=== PATIENT | female | born 1940 | race Caucasian/White ===

== ENCOUNTER 2016-08-08 13:48 | Inpatient (IN) | payer OTHER ==
[~2016-08-08] VITALS: Ht 152.4 cm; Wt 90.2 kg
[~2016-08-08 13:48] MED LIST: ASPI81TA28 PO; DULO60CA44 PO; GABA-113 PO; LEVO100T PO; LORA-741 PO; MELO7.5T5 PO; PANT40TA PO; SIMV40TA2 PO; VITACAP26 PO; VITAMIN D PO; ZOLP10TA PO
--- NOTE | 2016-08-08 15:15 | EMERGENCY ROOM VISIT NOTE ---
History Report prepared by Satinder: Chuck Goldstein Under the Supervision of: Dr. Jose Angel Pina D.O. First contact with patient: 15:01 Chief Complaint: IRREGULAR HEARTBEAT Stated Complaint: NEW ONSET OF A-FIB History of Present Illness The patient is a 76 year old female who presents to the Emergency Room with complaints of acute new-onset atrial fibrillation. The patient was referred to the ED by her Anesthesiologist for an irregular heartbeat during a pre-op assessment for hip replacement. The patient denies experiencing any chest pain, shortness of breath, nausea, vomiting, or leg swelling. She has not had any recent illness. The patient does not have any complaints. Cardiology was not consulted prior to referring the patient to the ED. The patient denies tobacco or alcohol use. She does not have a history of hypertension, diabetes mellitus, thyroid disease, or heart disease. The patient has never been treated for atrial fibrillation or other heart rhythm irregularities. The patient has a history of uterine cancer s/p total hysterectomy. The patient follows up with Dr. Blanton. Source of History: patient Onset: today Position: other (heart ) Quality: other (new onset A-fib) Timing: other (acute) Associated Symptoms: No SOB, No chest pain, No nausea, No vomiting Review of Systems See HPI for pertinent positives & negatives. A total of 10 systems reviewed and were otherwise negative. Past Medical & Surgical Medical Problems: (1) Anxiety (2) Atrial fibrillation with RVR (3) GERD (gastroesophageal reflux disease) (4) History of diverticulitis (5) History of hypertension (6) Osteoarthritis (7) Uterine cancer Surgical Problems: (1) H/O right knee surgery (2) History of lumbar surgery (3) S/P appendectomy (4) S/P BSO (bilateral salpingo-oophorectomy) (5) S/P cholecystectomy (6) S/P shoulder surgery (7) S/P total hysterectomy Family History Patient reports no known family medical history. Social History Smoking Status: Never Smoker Alcohol Use: none Current/Historical Medications Scheduled Aspirin (Aspirin Ec), 81 MG PO QAM Duloxetine Hcl (Cymbalta), 60 MG PO QAM Gabapentin (Neurontin), 300 MG PO QAM Gabapentin (Neurontin), 600 MG PO QPM Levothyroxine Sodium (Synthroid), 100 MCG PO QAM Lorazepam (Ativan), 0.5 MG PO HS Pantoprazole Sodium (Protonix), 40 MG PO QPM Simvastatin (Zocor), 40 MG PO 3XWEEK Vitamins C & E (Vitamin C), 1 TAB PO QPM Zolpidem Tartrate (Ambien), 10 MG PO HS [Vitamin D], 1 TAB PO QPM Scheduled PRN Meloxicam (Mobic), 7.5 MG PO DAILY PRN for Pain Allergies Coded Allergies: No Known Allergies (Unverified , 08/08/16) Physical Exam Vital Signs Date Time Temp Pulse Resp B/P Pulse Ox O2 Delivery O2 Flow Rate FiO2 08/08/16 17:38 105 27 08/08/16 17:33 90 14 97 08/08/16 17:28 136/92 08/08/16 17:03 102 95 08/08/16 16:58 131/87 08/08/16 16:33 95 97 08/08/16 16:28 126/95 08/08/16 16:18 110 97 08/08/16 16:00 152/99 08/08/16 15:48 108 21 97 08/08/16 15:46 113 20 135/90 96 Room Air 08/08/16 15:38 135/90 08/08/16 15:31 109 08/08/16 15:25 96 Room Air 08/08/16 15:25 96 Room Air 08/08/16 15:25 96 Room Air 08/08/16 13:53 36.8 82 20 134/79 96 Room Air Physical Exam GENERAL: Patient is awake, alert, and in no acute distress. Patient is resting comfortably and showing no signs of anxiety EYES: The conjunctivae are clear. The pupils are round and reactive. EARS, NOSE, MOUTH AND THROAT: The nose is without any evidence of any deformity. Mucous membranes are moist tongue is midline NECK: The neck is nontender and supple. RESPIRATORY: Normal respiratory effort is noted there is no evidence of wheezing rhonchi or rales CARDIOVASCULAR: Irregular rhythm noted to auscultation, no definite murmur was noted. GASTROINTESTINAL: The abdomen is soft. Bowel sounds are present in all quadrants. Abdomen is nontender MUSCULOSKELETAL/EXTREMITIES: There is no evidence of gross deformity full range of motion is noted in the hips and shoulders SKIN: There is no obvious evidence of any rash. There are no petechiae, pallor or cyanosis noted. Trace pedal edema bilaterally. NEUROLOGIC: Patient is awake alert and oriented x3. Medical Decision & Procedures ER Provider Diagnostic Interpretation: X-ray results as stated below per interpretation by me and the radiologist. CHEST ONE VIEW PORTABLE CLINICAL HISTORY: Palpitations. COMPARISON STUDY: No previous studies for comparison. FINDINGS: A left subclavian [id number] and proximal right humeral internal fixation are incidentally noted. There is no pneumothorax or pleural effusion. Moderate cardiomegaly is noted. There is no evidence of pulmonary edema. Right upper quadrant surgical clips are noted. Deformity of the left humeral head is likely chronic. IMPRESSION: 1. No acute cardiopulmonary findings. 2. Moderate cardiomegaly. 3. Study compromised by suboptimal penetration. Electronically signed by: Yaya Laureano M.D. 08/08/2016 3:28 PM Dictated Date/Time: 08/08/2016 3:27 PM Laboratory Results 08/08/16 15:26 Red Blood Count 4.17, Mean Corpuscular Volume 93.0, Mean Corpuscular Hemoglobin 30.9, Mean Corpuscular Hemoglobin Concent 33.2, Mean Platelet Volume 9.2, Neutrophils (%) (Auto) 61.6, Lymphocytes (%) (Auto) 24.7, Monocytes (%) (Auto) 9.5, Eosinophils (%) (Auto) 3.3, Basophils (%) (Auto) 0.4, Neutrophils # (Auto) 3.52, Lymphocytes # (Auto) 1.41, Monocytes # (Auto) 0.54, Eosinophils # (Auto) 0.19, Basophils # (Auto) 0.02 08/08/16 15:26 Test 08/08/16 15:26 08/08/16 16:02 White Blood Count 5.71 K/uL (4.8-10.8) Red Blood Count 4.17 M/uL (4.2-5.4) Hemoglobin 12.9 g/dL (12.0-16.0) Hematocrit 38.8 % (37-47) Mean Corpuscular Volume 93.0 fL (80-100) Mean Corpuscular Hemoglobin 30.9 pg (25-34) Mean Corpuscular Hemoglobin Concent 33.2 g/dl (32-36) Platelet Count 239 K/uL (130-400) Mean Platelet Volume 9.2 fL (7.4-10.4) Neutrophils (%) (Auto) 61.6 % Lymphocytes (%) (Auto) 24.7 % Monocytes (%) (Auto) 9.5 % Eosinophils (%) (Auto) 3.3 % Basophils (%) (Auto) 0.4 % Neutrophils # (Auto) 3.52 K/uL (1.4-6.5) Lymphocytes # (Auto) 1.41 K/uL (1.2-3.4) Monocytes # (Auto) 0.54 K/uL (0.11-0.59) Eosinophils # (Auto) 0.19 K/uL (0-0.5) Basophils # (Auto) 0.02 K/uL (0-0.2) RDW Standard Deviation 46.2 fL (36.4-46.3) RDW Coefficient of Variation 13.6 % (11.5-14.5) Immature Granulocyte % (Auto) 0.5 % Immature Granulocyte # (Auto) 0.03 K/uL (0.00-0.02) Prothrombin Time 10.4 SECONDS (9.0-12.0) Prothromb Time International Ratio 1.0 (0.9-1.1) Activated Partial Thromboplast Time 25.4 SECONDS (21.0-31.0) Partial Thromboplastin Ratio 1.0 Anion Gap 9.0 mmol/L (3-11) Est Creatinine Clear Calc Drug Dose 53.9 ml/min Estimated GFR () 70.2 Estimated GFR (Non- 60.5 BUN/Creatinine Ratio 15.5 (10-20) Calcium Level 9.2 mg/dl (8.5-10.1) Magnesium Level 2.1 mg/dl (1.8-2.4) Total Bilirubin 0.7 mg/dl (0.2-1) Aspartate Amino Transf (AST/SGOT) 15 U/L (15-37) Alanine Aminotransferase (ALT/SGPT) 15 U/L (12-78) Alkaline Phosphatase 123 U/L (45-117) Total Creatine Kinase 28 U/L (26-192) Creatine Kinase MB < 0.5 ng/ml (0.5-3.6) Creatine Kinase MB Ratio (0-3.0) Troponin I < 0.015 ng/ml (0-0.045) Total Protein 7.0 gm/dl (6.4-8.2) Albumin 3.5 gm/dl (3.4-5.0) Globulin 3.5 gm/dl (2.5-4.0) Albumin/Globulin Ratio 1.0 (0.9-2) Thyroid Stimulating Hormone (TSH) 0.559 uIu/ml (0.300-4.500) Free Thyroxine 1.57 ng/dl (0.80-1.60) Urine Color YELLOW Urine Appearance CLEAR (CLEAR) Urine pH 6.0 (4.5-7.5) Urine Specific [place] 1.008 (1.000-1.030) Urine Protein NEG (NEG) Urine Glucose (UA) NEG (NEG) Urine Ketones TRACE (NEG) Urine Occult Blood NEG (NEG) Urine Nitrite NEG (NEG) Urine Bilirubin NEG (NEG) Urine Urobilinogen NEG (NEG) Urine Leukocyte Esterase LARGE (NEG) Urine WBC (Auto) >30 /hpf (0-5) Urine RBC (Auto) 0-4 /hpf (0-4) Urine Hyaline Casts (Auto) 1-5 /lpf (0-5) Urine Epithelial Cells (Auto) 10-20 /lpf (0-5) Urine Bacteria (Auto) 4+ (NEG) Laboratory results per my review. Medications Administered Medications (Trade) Dose Ordered Sig/Vladislav Route Start Time Stop Time Status Last Admin Dose Admin Ceftriaxone Sodium (Rocephin Inj) 1 gm NOW STAT IV 08/08/16 17:04 08/08/16 17:05 DC 08/08/16 17:34 1 GM Metoprolol Tartrate (Lopressor Tab) 25 mg NOW STAT PO 08/08/16 17:31 08/08/16 17:33 DC 08/08/16 17:39 25 MG Enoxaparin Sodium (Lovenox Inj) 100 mg NOW ONCE SQ 08/08/16 17:45 08/08/16 17:46 DC 08/08/16 17:40 100 MG ECG Indication: other (irregular heart beat) Rate (beats per minute): 108 Rhythm: atrial fibrillation Findings: no acute ischemic change, other (no PVCs) Comparison ECG Date: no prior available ED Course 1508: The patient was evaluated in room A12b. A complete history and physical examination were performed. 1540: Second EKG showed atrial fibrillation at 116, no ectopy, no significant change from earlier EKG. 1704: Rocephin 1 gm IV. 1710: Discussed the case with Dr. Estrada Exhibit Cleaner. 1724: Updated the patient. She agreed with the plan. 173: Lopressor 25 mg PO. 173: Spoke with Lisa Jara PA-C, [facility]. The patient will be evaluated. 1745: Lovenox 100 mg SQ. Medical Decision Prior records/ancillary studies reviewed. Triage Nursing notes reviewed. Additional history obtained from daughter. The patient's history was concerning for palpitations. Differential diagnosis: Etiologies such as premature contractions, electrolyte abnormality, cardiac dysrhythmia, thyroid dysfunction, pulmonary embolism, infection, gastrointestinal, as well as others were entertained. The patient is a 76-year-old female who presented to the emergency department for an evaluation of palpitations. The patient went for preop testing and was sent to the emergency department for atrial fibrillation. She states that this is a new finding and she has not had this in the past. She has very few symptoms with this but we are unsure the exact onset of the atrial fibrillation. I discussed patient's laboratory and radiographic studies with her. She was started on an IV antibiotic for presumed urinary tract infection noted on urinalysis but was also given beta blockers and Lovenox in the emergency department. I discussed her case with the on-call [facility] carton gluing machine operator. I also discussed her case with the on-call [facility] hospitalist group. They have agreed to evaluate the patient in emergency apartment for further management and disposition. Consults Time Called: 1729 Consulting Physician: [facility]-C[facility] Returned Call: 1731 173: Spoke with Lisa Jara PA-C, [facility]. The patient will be evaluated. Additional Consults: Time Called: 170 Consulted Physician: Dr. Estrada Exhibit Cleaner. Returned Call: 171 Additional Comments: 171: Discussed the case with Dr. Estrada, Exhibit Cleaner. Impression Primary Impression: New onset a-fib Additional Impression: Palpitations Scribe Attestation The scribe's documentation has been prepared under my direction and personally reviewed by me in its entirety. I confirm that the note above accurately reflects all work, treatment, procedures, and medical decision making performed by me. Departure Information Dispostion Being Evaluated By Hospitalist Referrals No Doctor, Assigned (PCP) Patient Instructions My [facility] Problem Qualifiers
--- NOTE | 2016-08-08 15:29 | DIAGNOSTIC IMAGING REPORT ---
CHEST ONE VIEW PORTABLE CLINICAL HISTORY: Palpitations. COMPARISON STUDY: No previous studies for comparison. FINDINGS: A left subclavian [id number] and proximal right humeral internal fixation are incidentally noted. There is no pneumothorax or pleural effusion. Moderate cardiomegaly is noted. There is no evidence of pulmonary edema. Right upper quadrant surgical clips are noted. Deformity of the left humeral head is likely chronic. IMPRESSION: 1. No acute cardiopulmonary findings. 2. Moderate cardiomegaly. 3. Study compromised by suboptimal penetration. Electronically signed by: Yaya Laureano M.D. 08/08/2016 3:28 PM Dictated Date/Time: 08/08/2016 3:27 PM
[2016-08-08 15:58] LABS: BASO % 0.4 %; BASO ABS # 0.02 K/uL (0-0.2); COMPLETE YES; EOS % 3.3 %; HEMATOCRIT 38.8 % (37-47); IG% 0.5 %; LYMPH % 24.7 %; LYMPH ABS # 1.41 K/uL (1.2-3.4); MEAN CORPUSCULAR HEMOGLOBIN 30.9 pg (25-34); MEAN CORPUSCULAR HGB CONC 33.2 g/dl (32-36); MEAN PLATELET VOLUME 9.2 fL (7.4-10.4); MONO % 9.5 %; NEUT % 61.6 %; PLATELET COUNT 239 K/uL (130-400); RED BLOOD COUNT 4.17 M/uL (4.2-5.4); WHITE BLOOD COUNT 5.71 K/uL (4.8-10.8)
[2016-08-08 16:07] LABS: PROTHROMBIN TIME (PATIENT) 10.4 SECONDS (9.0-12.0)
[2016-08-08 16:21] LABS: ALT/SGPT 15 U/L (12-78); BLOOD UREA NITROGEN 14 mg/dl (7-18); BUN/CREATININE RATIO 15.5 (10-20); CALCIUM 9.2 mg/dl (8.5-10.1); CARBON DIOXIDE 28 mmol/L (21-32); CHLORIDE 105 mmol/L (98-107); CREATININE 0.93 mg/dl (0.60-1.20); GLUCOSE 87 mg/dl (70-99); MAGNESIUM 2.1 mg/dl (1.8-2.4); SODIUM 142 mmol/L (136-145)
[2016-08-08 16:27] LABS: URINE APPEARANCE CLEAR (CLEAR); URINE BILIRUBIN NEG (NEG); URINE COLOR YELLOW; URINE NITRITE NEG (NEG); URINE SPECIFIC GRAVITY 1.008 (1.000-1.030); UROBILINOGEN NEG (NEG)
[2016-08-08 16:28] LABS: MANUAL MICROSCOPIC REQUIRED? NO; REVIEW REQ? NO
[2016-08-08 16:29] LABS: ALKALINE PHOSPHATASE 123 U/L (45-117); AST/SGOT 15 U/L (15-37); THYROID STIMULATING HORMONE 0.559 uIu/ml (0.300-4.500)
[2016-08-08] MEDS ORDERED: CEFTRIAXONE SOD INJ 1 GM ADDVIAL IV STA (17:04)
[2016-08-08] MEDS ORDERED: METOPROLOL TARTRATE 50 MG TAB PO STA (17:31)
[2016-08-08] MEDS ORDERED: ENOXAPARIN 100 MG/1ML SYR SQ ONE (17:45)
[2016-08-08] MEDS ORDERED: ONDANSETRON INJ 2 MG/ML 2 ML VIAL IV PRN (18:30)
[2016-08-08] MEDS ORDERED: ACETAMINOPHEN 325 MG TAB PO PRN (18:30)
[2016-08-08 19:08] VITALS: O2SAT 96
[2016-08-08] MEDS ORDERED: METOPROLOL TARTRATE 1 MG/ML VIAL IV PRN (19:15)
[2016-08-08] MEDS ORDERED: MELOXICAM 7.5 MG TAB PO PRN (19:15)
--- NOTE | 2016-08-08 19:41 | History and Physical ---
History & Physical Date & Time of Service: Aug 08, 2016 at 19:08 Chief Complaint: New Onset Of A-Fib Primary Care Physician: Dilip Blanton M.D. History of Present Illness Source: patient, family (daughter at bedside) This is a 76 y/o female with PMH of uterine CA in remission s/p hysterectomy and chemo, history of hypertension, hyperlipidemia hypothyroidism, osteoarthritis, GERD, anxiety, who was sent to the ED from preop testing due to new onset atrial fibrillation. Patient was having preop testing done for R hip replacement scheduled for August [address] Johnsno. Pt reports feeling well except for her chronic right hip pain. She notes chronic urinary frequency and urgency. She denies fever, chills, dizziness, focal neuro symptoms, URI symptoms, cough, SOB, chest pain, palpitations, abdominal pain, nausea, vomiting , diarrhea, calf pain, edema, weight gain, history of abnormal bleeding. She was hospitalized in April 2016 in [facility] for 1 day after a mechanical fall in setting of dehydration from chemotherapy. No further falls. She lives alone and ambulates with a cane or walker. She states she was on medication for hypertension in the past but it was d/c in Apr 2016. Denies history of arrhythmia, CAD, valvular disease, CHF, DM, TIA, CVA. Denies having echo done recently. Past Medical/Surgical History Medical Problems: (1) Anxiety Status: Chronic (2) GERD (gastroesophageal reflux disease) Status: Chronic (3) History of diverticulitis Status: Chronic (4) History of hypertension Status: Chronic (5) Osteoarthritis Status: Chronic (6) Uterine cancer Permanent Comment: in remission s/p hysterectomy and chemo completed Apr 2016 Status: Resolved Surgical Problems: (1) H/O right knee surgery Status: Chronic (2) History of lumbar surgery Status: Chronic (3) S/P appendectomy Status: Chronic (4) S/P BSO (bilateral salpingo-oophorectomy) Status: Chronic (5) S/P cholecystectomy Status: Chronic (6) S/P shoulder surgery Status: Chronic (7) S/P total hysterectomy Status: Resolved Family History Denies any family history of CAD, arrhythmia, sudden cardiac . States both parents lived into their 90's. Social History Smoking Status: Never Smoker Alcohol Use: none Drug Use: none Housing status: lives alone Allergies Coded Allergies: No Known Allergies (Unverified , 08/08/16) Home Medications Scheduled Aspirin (Aspirin Ec), 81 MG PO QAM Duloxetine Hcl (Cymbalta), 60 MG PO QAM Gabapentin (Neurontin), 300 MG PO QAM Gabapentin (Neurontin), 600 MG PO QPM Levothyroxine Sodium (Synthroid), 100 MCG PO QAM Lorazepam (Ativan), 0.5 MG PO HS Pantoprazole Sodium (Protonix), 40 MG PO QPM Simvastatin (Zocor), 40 MG PO 3XWEEK Vitamins C & E (Vitamin C), 1 TAB PO QPM Zolpidem Tartrate (Ambien), 10 MG PO HS [Vitamin D], 1 TAB PO QPM Scheduled PRN Meloxicam (Mobic), 7.5 MG PO DAILY PRN for Pain Review of Systems Ten point review of systems performed with pertinent positives and negatives noted in HPI. Physical Exam Vital Signs Date Time Temp Pulse Resp B/P Pulse Ox O2 Delivery O2 Flow Rate FiO2 08/08/16 17:33 90 14 97 08/08/16 17:28 136/92 08/08/16 17:03 102 95 08/08/16 16:58 131/87 08/08/16 16:33 95 97 08/08/16 16:28 126/95 08/08/16 16:18 110 97 08/08/16 16:00 152/99 08/08/16 15:48 108 21 97 08/08/16 15:46 113 20 135/90 96 Room Air 08/08/16 15:38 135/90 08/08/16 15:31 109 08/08/16 15:25 96 Room Air 08/08/16 15:25 96 Room Air 08/08/16 15:25 96 Room Air 08/08/16 13:53 36.8 82 20 134/79 96 Room Air General Appearance: WD/WN, no apparent distress, + obese, + pertinent finding ( pleasant alert elderly female, lying in bed NAD, daughter at bedside) Head: normocephalic, atraumatic Eyes: normal inspection, PERRL, EOMI ENT: hearing grossly normal, pharynx normal Neck: supple, no JVD, trachea midline Respiratory/Chest: lungs clear, normal breath sounds, no respiratory distress, no accessory muscle use Cardiovascular: regular rate, rhythm, no murmur Abdomen/GI: normal bowel sounds, non tender, soft Extremities/Musculoskelatal: no calf tenderness, normal capillary refill, + pertinent finding (trace pretibial edema bilaterally) Neurologic/Psych: alert, normal mood/affect, oriented x 3, + pertinent finding (grossly nonfocal) Skin: normal color, warm/dry Diagnostics Laboratory Results Results Past 24 Hours Test 08/08/16 15:26 08/08/16 16:02 Range/Units White Blood Count 5.71 4.8-10.8 K/uL Red Blood Count 4.17 4.2-5.4 M/uL Hemoglobin 12.9 12.0-16.0 g/dL Hematocrit 38.8 37-47 % Mean Corpuscular Volume 93.0 80-100 fL Mean Corpuscular Hemoglobin 30.9 25-34 pg Mean Corpuscular Hemoglobin Concent 33.2 32-36 g/dl Platelet Count 239 130-400 K/uL Mean Platelet Volume 9.2 7.4-10.4 fL Neutrophils (%) (Auto) 61.6 % Lymphocytes (%) (Auto) 24.7 % Monocytes (%) (Auto) 9.5 % Eosinophils (%) (Auto) 3.3 % Basophils (%) (Auto) 0.4 % Neutrophils # (Auto) 3.52 1.4-6.5 K/uL Lymphocytes # (Auto) 1.41 1.2-3.4 K/uL Monocytes # (Auto) 0.54 0.11-0.59 K/uL Eosinophils # (Auto) 0.19 0-0.5 K/uL Basophils # (Auto) 0.02 0-0.2 K/uL RDW Standard Deviation 46.2 36.4-46.3 fL RDW Coefficient of Variation 13.6 11.5-14.5 % Immature Granulocyte % (Auto) 0.5 % Immature Granulocyte # (Auto) 0.03 0.00-0.02 K/uL Prothrombin Time 10.4 9.0-12.0 SECONDS Prothromb Time International Ratio 1.0 0.9-1.1 Activated Partial Thromboplast Time 25.4 21.0-31.0 SECONDS Partial Thromboplastin Ratio 1.0 Sodium Level 142 136-145 mmol/L Potassium Level 4.0 3.5-5.1 mmol/L Chloride Level 105 98-107 mmol/L Carbon Dioxide Level 28 21-32 mmol/L Anion Gap 9.0 3-11 mmol/L Blood Urea Nitrogen 14 7-18 mg/dl Creatinine 0.93 0.60-1.20 mg/dl Est Creatinine Clear Calc Drug Dose 53.9 ml/min Estimated GFR () 70.2 Estimated GFR (Non- 60.5 BUN/Creatinine Ratio 15.5 10-20 Random Glucose 87 70-99 mg/dl Calcium Level 9.2 8.5-10.1 mg/dl Magnesium Level 2.1 1.8-2.4 mg/dl Total Bilirubin 0.7 0.2-1 mg/dl Aspartate Amino Transf (AST/SGOT) 15 15-37 U/L Alanine Aminotransferase (ALT/SGPT) 15 12-78 U/L Alkaline Phosphatase 123 45-117 U/L Total Creatine Kinase 28 26-192 U/L Creatine Kinase MB < 0.5 0.5-3.6 ng/ml Creatine Kinase MB Ratio 0-3.0 Troponin I < 0.015 0-0.045 ng/ml Total Protein 7.0 6.4-8.2 gm/dl Albumin 3.5 3.4-5.0 gm/dl Globulin 3.5 2.5-4.0 gm/dl Albumin/Globulin Ratio 1.0 0.9-2 Thyroid Stimulating Hormone (TSH) 0.559 0.300-4.500 uIu/ml Free Thyroxine 1.57 0.80-1.60 ng/dl Urine Color YELLOW Urine Appearance CLEAR CLEAR Urine pH 6.0 4.5-7.5 Urine Specific [place] 1.008 1.000-1.030 Urine Protein NEG NEG Urine Glucose (UA) NEG NEG Urine Ketones TRACE NEG Urine Occult Blood NEG NEG Urine Nitrite NEG NEG Urine Bilirubin NEG NEG Urine Urobilinogen NEG NEG Urine Leukocyte Esterase LARGE NEG Urine WBC (Auto) >30 0-5 /hpf Urine RBC (Auto) 0-4 0-4 /hpf Urine Hyaline Casts (Auto) 1-5 0-5 /lpf Urine Epithelial Cells (Auto) 10-20 0-5 /lpf Urine Bacteria (Auto) 4+ NEG Microbiology Results 08/08/16 Urine Culture, Received Pending Diagnostic Radiology CHEST ONE VIEW PORTABLE CLINICAL HISTORY: Palpitations. COMPARISON STUDY: No previous studies for comparison. FINDINGS: A left subclavian [id number] and proximal right humeral internal fixation are incidentally noted. There is no pneumothorax or pleural effusion. Moderate cardiomegaly is noted. There is no evidence of pulmonary edema. Right upper quadrant surgical clips are noted. Deformity of the left humeral head is likely chronic. IMPRESSION: 1. No acute cardiopulmonary findings. 2. Moderate cardiomegaly. 3. Study compromised by suboptimal penetration. EKG atrial fibrillation with RVR, rate 116 bpm, incomplete RBBB, Impression Assessment and Plan NEW ONSET AFIB WITH RVR Unclear time of onset; discovered at preop testing for upcoming R hip surgery HR up to 110s; now running approx 100 Possible underlying UTI- UA appears infected; urine culture pending; started on Rocephin Electrolytes and TSH are WNL Initial troponin negative Given Lopressor 25 mg and weight based Lovenox SQ in the ER Trend serial cardiac enzymes Check echo Continue PO Lopressor at 25 mg BID and IV Lopressor PRN; weight based Lovenox SQ Consult cardiology; Dr. Estrada contacted by ER POSSIBLE UTI UA appears infected Urine culture pending Continue empiric Rocephin HISTORY OF HYPERTENSION No longer on medication BP is stable Continue to monitor HYPERLIPIDEMIA Continue simvastatin HYPOTHYROIDISM Continue levothyroxine HISTORY OF UTERINE CANCER In remission s/p surgery and chemo CHRONIC PAIN Continue gabapentin ANXIETY Continue PRN Ativan GERD Continue Protonix DVR PROPHYLAXIS On Lovenox SQ CODE STATUS DNR as per my discussion with the patient. DISPOSITION Admit to telemetry Patient seen in collaboration with Dr. Du. Please see his addendum. Agree with above H and P. Briefly 76F was having pre op evaluation for hip surgery and found to be in a fib. Never had any symptoms. Denies chest pain, palpitations, dizziness . No nausea or abdominal pain. 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 a/p New onset afib unknown duration started on po Lopressor and Lovenox f/u echo monitor in tele cardiology consulted HTN no longer on medication started on Lopressor this admission will monitor VTE Prophylaxis VTE Risk Assessment Done? Y/N: Yes Risk Level: Moderate Given or contraindicated: Enoxaparin (Lovenox)SQ
[2016-08-08 19:52] VITALS: BP 105/75; PULSE 92; TEMP 36.8; O2SAT 99; Ht 152.4 cm; Wt 90.2 kg
[2016-08-08] MEDS ORDERED: [UNRECOGNIZED DRUG - OTHER] PO SCH (21:00)
[2016-08-08] MEDS ORDERED: VITAMINS C PO SCH (21:00)
[2016-08-08] MEDS ORDERED: WARFARIN SOD 5 MG TAB PO STA (21:10)
[2016-08-08] MEDS ORDERED: WARFARIN SOD 5 MG TAB ONE (23:34)
[2016-08-08] MEDS: PANTOprazole SOD 40 MG TAB PO SCH (23:40)
[2016-08-08] MEDS: GABAPENTIN 600 MG TAB PO SCH (23:41)
[2016-08-08 23:42] VITALS: BP 120/94; PULSE 102; TEMP 36.8; O2SAT 97
[2016-08-09] VITALS (7 sets, daily range): BP systolic 102–127; BP diastolic 70–85; PULSE 82–100; TEMP 36–36.8; O2SAT 93–97
[2016-08-09] MEDS: LORAZEPAM 0.5 MG TAB PO SCH ×2 (00:37→20:59)
[2016-08-09] MEDS: ZOLPIDEM TARTRATE 10 MG TAB PO SCH ×2 (00:37→20:58)
[2016-08-09] MEDS ORDERED: METOPROLOL TARTRATE 25 MG TAB PO SCH (06:00)
[2016-08-09] MEDS ORDERED: ENOXAPARIN 1 MG/KG SQ SCH (06:00)
[2016-08-09 06:15] LABS: HEMATOCRIT 34.5 % (37-47); MEAN CELL VOLUME 92.5 fL (80-100); MEAN CORPUSCULAR HEMOGLOBIN 31.4 pg (25-34); MEAN CORPUSCULAR HGB CONC 33.9 g/dl (32-36); MEAN PLATELET VOLUME 9.3 fL (7.4-10.4); PLATELET COUNT 219 K/uL (130-400); RED BLOOD COUNT 3.73 M/uL (4.2-5.4)
[2016-08-09 06:26] LABS: PROTHROMBIN TIME (PATIENT) 10.7 SECONDS (9.0-12.0)
[2016-08-09 06:43] LABS: BUN/CREATININE RATIO 14.4 (10-20); CREATININE 0.86 mg/dl (0.60-1.20); MAGNESIUM 1.9 mg/dl (1.8-2.4); POTASSIUM 3.6 mmol/L (3.5-5.1)
[2016-08-09] MEDS: LEVOTHYROXINE 100 MCG TAB PO SCH (06:51)
[2016-08-09] MEDS: ASPIRIN 81 MG ECTAB PO SCH (07:53)
[2016-08-09] MEDS: GABAPENTIN 300 MG CAP PO SCH (07:53)
[2016-08-09] MEDS: DULOXETINE HCL 60 MG CAP PO SCH (07:53)
[2016-08-09] MEDS: METOPROLOL TARTRATE 25 MG TAB PO SCH ×2 (07:54→21:06)
[2016-08-09] MEDS: ENOXAPARIN 100 MG/1ML SYR SQ SCH ×2 (09:14→21:09)
[2016-08-09] MEDS ORDERED: PERFLUTREN LIPID MICROSPHERE (DEFINITY) IV ONE (14:18)
--- NOTE | 2016-08-09 16:56 | Progress Note ---
Subjective Date of Service: Aug 09, 2016. Subjective Pt evaluation today including: conversation w/ patient, conversation w/ family , physical exam, lab review, review of studies, review of inpatient medication list Saw/examined the patient in room 277 Daughter is in the room with her Patient denies any symptoms +chronic hip pain Problem List Medical Problems: (1) New onset a-fib Status: Acute (2) Palpitations Status: Acute Review of Systems Constitutional: No chills, No fever Respiratory: No cough, No shortness of breath Cardiac: No chest pain Abdomen: No diarrhea, No nausea, No pain, No vomiting Musculoskeletal: + joint pain (chronic hip pain) Heme: No abnormal bleeding/bruising Medications Current Inpatient Medications Medications (Trade) Dose Ordered Sig/Vladislav Route Start Time Stop Time Status Last Admin Dose Admin Acetaminophen (Tylenol Tab) 650 mg Q4H PRN PO 08/08/16 18:30 09/07/16 18:29 Ondansetron HCl 4 mg 4 mg Q6H PRN IV 08/08/16 18:30 09/07/16 18:29 Ceftriaxone Sodium/Dextrose (Rocephin Inj/ Dextrose Add-[place] 50ML) 50 ml @ 100 mls/hr DAILY@1800 IV 08/09/16 18:00 08/13/16 17:59 Aspirin (Ecotrin Tab) 81 mg QAM PO 08/09/16 09:00 09/08/16 08:59 08/09/16 07:53 81 MG Duloxetine HCl (Cymbalta Cap) 60 mg QAM PO 08/09/16 09:00 09/08/16 08:59 08/09/16 07:53 60 MG Gabapentin (Neurontin Cap) 300 mg QAM PO 08/09/16 09:00 09/08/16 08:59 08/09/16 07:53 300 MG Gabapentin (Neurontin Tab) 600 mg QPM PO 08/08/16 21:00 09/07/16 20:59 08/08/16 23:41 600 MG Levothyroxine Sodium (Synthroid Tab) 100 mcg DAILYBB PO 08/09/16 06:30 09/08/16 06:59 08/09/16 06:51 100 MCG Lorazepam (Ativan Tab) 0.5 mg HS PO 08/08/16 21:00 09/07/16 20:59 08/09/16 00:37 0.5 MG Pantoprazole Sodium (Protonix Tab) 40 mg QPM PO 08/08/16 21:00 09/07/16 20:59 08/08/16 23:40 40 MG Simvastatin (Zocor Tab) 40 mg TuThSa@2100 PO 08/09/16 21:00 09/08/16 20:59 Zolpidem Tartrate (Ambien Tab) 10 mg HS PO 08/08/16 21:00 09/07/16 20:59 08/09/16 00:37 10 MG Miscellaneous Information (Order Awaiting Action) 1 ea QS N/A 08/09/16 00:00 09/08/16 00:00 Metoprolol Tartrate (Lopressor Iv) 2.5 mg Q6 PRN IV 08/08/16 19:15 09/07/16 19:14 Enoxaparin Sodium (Lovenox Inj) 90 mg Q12 SQ 08/09/16 09:00 09/08/16 08:59 08/09/16 09:14 90 MG Metoprolol Tartrate (Lopressor Tab) 25 mg BID PO 08/09/16 09:00 09/08/16 08:59 08/09/16 07:54 25 MG Objective Vital Signs Date Time Temp Pulse Resp B/P Pulse Ox O2 Delivery O2 Flow Rate FiO2 08/09/16 16:00 Room Air 08/09/16 15:23 36.5 91 18 105/70 96 Room Air 08/09/16 12:00 Room Air 08/09/16 11:54 36.0 96 20 108/77 95 Nasal Cannula 2.0 08/09/16 08:00 Room Air 08/09/16 07:21 36.7 93 18 110/75 93 Room Air 08/09/16 05:14 36.7 100 18 106/76 95 Room Air 08/09/16 04:00 Room Air 08/09/16 00:00 Room Air 08/08/16 23:42 36.8 102 20 120/94 97 Room Air 08/08/16 22:19 113 08/08/16 19:52 36.8 92 18 105/75 99 Room Air 08/08/16 19:28 127/84 08/08/16 19:26 144/92 08/08/16 19:08 89 18 96 08/08/16 18:38 100 17 97 08/08/16 17:38 105 27 08/08/16 17:33 90 14 97 08/08/16 17:28 136/92 08/08/16 17:03 102 95 08/08/16 16:58 131/87 Physical Exam General Appearance: no apparent distress Respiratory/Chest: lungs clear, normal breath sounds, no respiratory distress, no accessory muscle use Cardiovascular: no murmur, + irregularly irregular Abdomen: normal bowel sounds, non tender, soft Extremities: normal inspection, no pedal edema Neurologic/Psychiatric: no motor/sensory deficits, alert, normal mood/affect Skin: normal color Laboratory Results Last 24 Hours Test 08/09/16 05:50 White Blood Count 5.00 K/uL Red Blood Count 3.73 M/uL Hemoglobin 11.7 g/dL Hematocrit 34.5 % Mean Corpuscular Volume 92.5 fL Mean Corpuscular Hemoglobin 31.4 pg Mean Corpuscular Hemoglobin Concent 33.9 g/dl RDW Standard Deviation 45.5 fL RDW Coefficient of Variation 13.5 % Platelet Count 219 K/uL Mean Platelet Volume 9.3 fL Prothrombin Time 10.7 SECONDS Prothromb Time International Ratio 1.0 Sodium Level 142 mmol/L Potassium Level 3.6 mmol/L Chloride Level 107 mmol/L Carbon Dioxide Level 26 mmol/L Anion Gap 9.0 mmol/L Blood Urea Nitrogen 12 mg/dl Creatinine 0.86 mg/dl Est Creatinine Clear Calc Drug Dose 57.4 ml/min Estimated GFR () 77.1 Estimated GFR (Non- 66.6 BUN/Creatinine Ratio 14.4 Random Glucose 92 mg/dl Calcium Level 9.0 mg/dl Magnesium Level 1.9 mg/dl Assessment and Plan This is a 76 year old female with PMH of uterine CA in remission s/p hysterectomy and chemo, HTN, HLD, hypothyroid, anxiety, was sent over for atrial fibrillation during pre-operative examination. Atrial Fibrillation with RVR patient presented with atrial fibrillation with RVR was given b-sin, CCB in the ER HRs improved to the 90s-100s BP is on the lower end, 105/70 continues to be in A. fib today (08/09) currently anticoagulated with weight based Lovenox/Coumadin TSH wnl electrolytes wnl echo pending cardiology consulted for further input right hip surgery planned for 08/31 Right Hip Osteoarthritis planned surgery replacement of right hip on 08/31 Hypothyroidism TSH wnl continue Synthroid dose Uterine CA last chemo in April 2016 in remission HTN blood pressure on the lower end continue Lopressor 25mg BID, increase if blood pressure allows DVT ppx Lovenox DNR
[2016-08-09] MEDS ORDERED: CEFTRIAXONE SOD INJ 1 GM in DEXTROSE 5% ADD-VANTAGE 50ML 50 ML IV SCH (18:00)
[2016-08-09] MEDS ORDERED: WARFARIN SOD 5 MG TAB PO ONE (18:15)
--- NOTE | 2016-08-09 18:16 | ECHOCARDIOGRAM REPORT ---
*NOTICE TO RECEIVING [employer] This information is strictly Confidential and protected under [place] law. [place] law prohibits you from making any further disclosure of this information unless further disclosure is expressly permitted by the written consent of the person to whom it pertains or is authorized by law. A general authorization for the release of medical or other information is not sufficient for this purpose. Hospital accepts no responsibility if the information is made available to any other person, INCLUDING THE PATIENT. Interpretation Summary * Name: KIRIT PATEL Study Date: 08/09/2016 01:15 PM BP: 106/76 mmHg * Patient Location: [facility]\S\N277\S\2 HR: 100 * : 1940 (M/d/yyy) Gender: Female Height: 60 in * Age: 76 yrs Ethnicity: [place] Weight: 203 lb * Ordering Physician: Elsie Jara * Referring Physician: Self, Referred * Performed By: Francisco Cline RCS * * Reason For Study: A-FIB * BSA: 1.9 m2 * -- Conclusions -- * Atrial fibirllation with rapid ventricular rate was present during the echocardiogram study. * The LV wall motion is grossly normal, with limited regional wall motion analysis due to the prescence of atrial fibrillaiton with rapid ventricualr rate. * Left ventricular systolic function is normal. * The left atrial size is normal. * There is no significant valvular heart disease. Procedure Details * A complete two-dimensional transthoracic echocardiogram was performed (2D, M-mode, Doppler and color flow Doppler). * A contrast injection of Definity was performed to improve assessment of LV function. * A contrast injection of Definity was performed to improve assessment for apical thrombus. * Contrast was injected into an intravenous site in the left arm. * One vial of Definity ultrasound contrast was diluted in normal saline to a total volume of 10 ml. A total of '2' ml of solution was administered during imaging. * Lot # [id number] of Definity utilized for procedure. * Expiration date 1FEB. * The attending nurse who injected the contrast agent was Alma Zhong RN. Left Ventricle * The left ventricle is normal in size. * There is normal left ventricular wall thickness. * Left ventricular systolic function is normal. * The LV wall motion is grossly normal, with limited regional wall motion analysis due to the prescence of atrial fibrillaiton with rapid ventricualr rate. Right Ventricle * The right ventricle is normal size. * The right ventricular systolic function is normal as assessed by tricuspid annular plane systolic excursion (TAPSE) (normal >1.5 cm). Atria * The left atrial size is normal. * Right atrial size is normal. * There is no evidence of atrial septal defect, but resolution does not allow assessment for a patent foramen ovale. * Lipomatous hypertrophy of the interatrial septum is noted. Mitral Valve * The mitral valve is normal. * There is no mitral valve stenosis. * Significant mitral regurgitation is absent. Tricuspid Valve * The tricuspid valve is normal. * There is no tricuspid stenosis. * Significant tricuspid regurgitation is absent. * Doppler findings do not suggest pulmonary hypertension. Aortic Valve * The aortic valve is trileaflet. * Aortic stenosis is absent. * There is no significant aortic regurgitation. Pulmonic Valve * The pulmonary valve is inadequately visualized, but the Doppler data is adequate for interpretation. * There is no pulmonic valvular stenosis. * Mild pulmonic valvular regurgitation. Great Vessels * The aortic root and proximal ascending aorta are normal sized. Pericardium/Pleural * There is no pericardial effusion. Great Vessels * Normal inferior vena cava diameter and respiratory variation suggests normal central venous pressure. * Normal inferior vena cava size and collapsability with sniff indicates a normal right atrial pressure of 3 mmHg MMode 2D Measurements and Calculations IVSd 1.0 cm IVSs 1.6 cm LVIDd 4.0 cm LVIDs 2.6 cm LVPWd 1.1 cm LVPWs 1.6 cm IVS/LVPW 0.92 FS 35.2 % EDV(Teich) 68.0 ml ESV(Teich) 23.7 ml EF(Teich) 65.1 % EDV(cubed) 61.7 ml ESV(cubed) 16.8 ml EF(cubed) 72.7 % % IVS thick 50.0 % % LVPW thick 38.5 % LV mass(C)d 140.1 grams LV mass(C)dI 74.6 grams/m\S\2 LV mass(C)s 139.7 grams LV mass(C)sI 74.3 grams/m\S\2 CO(Teich) 3.6 l/min CI(Teich) 1.9 l/min/m\S\2 SV(Teich) 44.3 ml SI(Teich) 23.6 ml/m\S\2 CO(cubed) 3.6 l/min CI(cubed) 1.9 l/min/m\S\2 SV(cubed) 44.9 ml SI(cubed) 23.9 ml/m\S\2 Ao root diam 3.6 cm Ao root area 10.0 cm\S\2 ACS 2.0 cm LA dimension 3.8 cm LA/Ao 1.1 LVAd ap4 27.5 cm\S\2 LVLd ap4 8.1 cm EDV(MOD-sp4) 78.0 ml LVAs ap4 16.6 cm\S\2 LVLs ap4 7.0 cm ESV(MOD-sp4) 34.0 ml EF(MOD-sp4) 56.4 % LVAd ap2 26.9 cm\S\2 LVLd ap2 8.0 cm EDV(MOD-sp2) 75.0 ml LVAs ap2 12.8 cm\S\2 LVLs ap2 6.3 cm ESV(MOD-sp2) 24.0 ml EF(MOD-sp2) 68.0 % CO(MOD-sp4) 3.6 l/min CI(MOD-sp4) 1.9 l/min/m\S\2 SV(MOD-sp4) 44.0 ml SI(MOD-sp4) 23.4 ml/m\S\2 CO(MOD-sp2) 4.1 l/min CI(MOD-sp2) 2.2 l/min/m\S\2 SV(MOD-sp2) 51.0 ml SI(MOD-sp2) 27.1 ml/m\S\2 Doppler Measurements and Calculations MV A max jaclyn 92.7 cm/sec Ao V2 max 90.5 cm/sec Ao max PG 3.3 mmHg Ao max PG (full) 0.79 mmHg LV V1 max PG 2.5 mmHg LV V1 max 78.8 cm/sec PA V2 max 76.0 cm/sec PA max PG 2.3 mmHg PI max jaclyn 223.7 cm/sec PI max PG 20.0 mmHg PI dec slope 200.3 cm/sec\S\2 PI P1/2t 327.1 msec TR max jaclyn 205.2 cm/sec
--- NOTE | 2016-08-09 18:46 | Cardiology Consultation ---
Cardiology Consultation Date of Service Aug 09, 2016. Cardiology Consultation Complete cardiology consult dictated. Impression: new AF, mildly elevated rate, improved at present, asymptomatic. Plan: metoprolol tartrate, lovenox bridge, coumadin.
--- NOTE | 2016-08-09 19:30 | CARDIOLOGY CONSULTATION ---
DATE OF CONSULTATION: 08/09/2016 HISTORY OF PRESENT ILLNESS: Joyce Rodriguez is a 76-year-old female seen in cardiology consultation per the request of Elsie Jara PA-C for the evaluation of atrial fibrillation. The patient's primary care provider is Dr. Dilip Blanton in [place]. The patient presented to [facility] yesterday for a preoperative EKG as part of testing prior to right hip replacement which is scheduled for 08/31/[address] Johnson. The EKG performed revealed atrial fibrillation with mildly elevated ventricular rate. She was referred to the Emergency Department and a repeat tracing was performed on 08/08/2016 at 1524 that revealed atrial fibrillation with 116 beats per minute with incomplete right bundle-branch block and nonspecific ST abnormality and mild QT prolongation. The patient denied any cardiac symptoms. She denies any chest discomfort. Denies any shortness of breath. She does note that her activity tolerance has been limited due to chronic progressive right hip pain and that is why she has to have the hip surgery performed. On blood work yesterday, she was also found to have a urinary tract infection with positive urinalysis. Urine culture has grown out Gram-negative bacilli with sensitivities pending. She is on ceftriaxone intravenously and she denies any dysuria. She was placed on anticoagulation with Lovenox and has received 90 mg subQ q. 12 hours and has an upcoming dose planned to 2100. She received 5 mg of Coumadin last evening. A transthoracic echocardiogram was performed today and reviewed independently by the undersigned. Atrial fibrillation with rapid ventricular response was present during the echocardiogram study. Left ventricular wall motion was grossly normal with limited regional wall motion analysis due to the presence of atrial fibrillation with rapid ventricular rate. Left ventricular systolic function was noted to be normal. No significant valvular heart disease was noted. The left atrial size was normal. PAST MEDICAL HISTORY: 1. Uterine carcinoma, which is reported at admission with the patient having received hysterectomy and 4 treatments of chemotherapy completed in April 2016. 2. Osteoarthritis with progressive hip pain as noted above. 3. Hypertension. 4. Anxiety. 5. Gastroesophageal reflux disease. 6. Obesity. PAST SURGICAL HISTORY: 1. History of right knee replacement. 2. History of lumbar spine surgery. 3. History of appendectomy. 4. History of cholecystectomy. 5. History of hysterectomy. FAMILY HISTORY: She denies any family history of coronary artery disease. Both of her parents lived into their 90s. SOCIAL HISTORY: She is a nonsmoker. She lives independently. She has a daughter who is at the bedside who supports her regularly. ALLERGIES: No known drug allergies. HOME MEDICATIONS: Aspirin 81 mg by mouth daily, Cymbalta 60 mg by mouth daily, Neurontin 300 mg by mouth in a.m. and 600 mg in p.m., levothyroxine 100 mcg by mouth daily, lorazepam 0.5 mg at bedtime, Protonix 40 mg at bedtime, simvastatin 40 mg daily, Ambien 10 mg as needed for sleep. p.r.n. medications Mobic 7.5 mg by mouth as needed for pain. COMPREHENSIVE REVIEW OF SYSTEMS: A 10-point review of systems was reviewed and is negative with the exception of that noted above. PHYSICAL EXAMINATION: VITAL SIGNS: Temperature 36.5, heart rate 91, blood pressure 105/70, respiratory rate 18. GENERAL APPEARANCE: Awake and oriented x3 in no acute distress. HEENT: Extraocular muscles were intact. Pupils are equal and reactive to light. NECK: No bruits. No cervical lymphadenopathy. CARDIOVASCULAR: Irregular rhythm. Mildly elevated. No murmurs. EXTREMITIES: No edema. NEUROLOGIC: No focal deficits. PSYCHIATRIC: Appropriate affect and insight. DIAGNOSTIC DATA: As noted above. In addition, hemoglobin is stable at 11.7. No leukocytosis. FINAL IMPRESSION: A 76-year-old female with: 1. Newly recognized atrial fibrillation, mildly elevated ventricular rate on admission. 2. Incomplete right bundle-branch block. 3. Dyslipidemia. 4. Urinary tract infection. 5. Osteoarthritis, pending upcoming hip replacement proposed for 08/31/2016. At the present time, continue metoprolol for rate control. The patient is asymptomatic, although her activity tolerance is limited by her osteoarthritis. Continue enoxaparin for stroke prophylaxis. Given stroke risk factors of age of greater than 65 and close to 75 and female gender, recommend anticoagulation for stroke prophylaxis. We discussed the options of Coumadin versus one of the direct oral anticoagulants due to cost concerns, will likely proceed with Coumadin with the knowledge that this will need to be withheld prior to her upcoming proposed hip surgery. In terms of preoperative cardiac evaluation prior to hip surgery, the patient has no anginal symptoms. I think that if her heart rate is reasonably well controlled after titration of her beta-sin therapy, she will likely be able to proceed to hip surgery without further cardiac testing. It is noted that she had significant surgery last April with hysterectomy and tolerated this well. The patient has received 5 mg of Coumadin tonight. My plan is to arrange transition of her anticoagulation management to her primary care provider tomorrow and hopefully, discharge her tomorrow once that plan is established. JULIUS
[2016-08-09] MEDS: PANTOprazole SOD 40 MG TAB PO SCH (20:59)
[2016-08-09] MEDS ORDERED: SIMVASTATIN 40 MG TAB PO SCH (21:00)
[2016-08-09] MEDS: GABAPENTIN 600 MG TAB PO SCH (21:00)
[2016-08-09 21:30] LABS: CKMB/CK RATIO 1.7 (0-3.0)
[2016-08-10 03:22] LABS: HEMATOCRIT 36.2 % (37-47); MEAN CELL VOLUME 94.3 fL (80-100); MEAN CORPUSCULAR HEMOGLOBIN 30.5 pg (25-34); MEAN CORPUSCULAR HGB CONC 32.3 g/dl (32-36); MEAN PLATELET VOLUME 9.5 fL (7.4-10.4); PLATELET COUNT 219 K/uL (130-400); RED BLOOD COUNT 3.84 M/uL (4.2-5.4); WHITE BLOOD COUNT 4.45 K/uL (4.8-10.8)
[2016-08-10 03:25] LABS: PROTHROMBIN TIME (PATIENT) 10.9 SECONDS (9.0-12.0)
[2016-08-10 03:31] LABS: BLOOD UREA NITROGEN 12 mg/dl (7-18); BUN/CREATININE RATIO 13.3 (10-20); CALCIUM 8.7 mg/dl (8.5-10.1); CARBON DIOXIDE 28 mmol/L (21-32); CHLORIDE 107 mmol/L (98-107); GLUCOSE 102 mg/dl (70-99); POTASSIUM 3.7 mmol/L (3.5-5.1); SODIUM 143 mmol/L (136-145)
[2016-08-10 05:11] VITALS: BP 109/73; PULSE 98; TEMP 36.5; O2SAT 94
[2016-08-10] MEDS: LEVOTHYROXINE 100 MCG TAB PO SCH (06:54)
[2016-08-10 07:54] VITALS: BP 99/45; PULSE 97; TEMP 36.5; O2SAT 94
[2016-08-10] MEDS: METOPROLOL TARTRATE 25 MG TAB PO SCH (07:55)
[2016-08-10] MEDS: ASPIRIN 81 MG ECTAB PO SCH (07:57)
[2016-08-10] MEDS: DULOXETINE HCL 60 MG CAP PO SCH (07:57)
[2016-08-10] MEDS: GABAPENTIN 300 MG CAP PO SCH (07:57)
[2016-08-10] MEDS: ENOXAPARIN 100 MG/1ML SYR SQ SCH (07:57)
[2016-08-10 07:59] VITALS: BP 136/93; PULSE 96
[2016-08-10] MEDS ORDERED: CEFUROXIME AXETIL 250 MG TAB PO ONE (08:45)
--- NOTE | 2016-08-10 09:15 | Progress Note ---
Subjective Date of Service: Aug 10, 2016. Subjective Pt evaluation today including: conversation w/ patient, physical exam, lab review, review of studies, conversation w/ construction safety consultant, review of inpatient medication list Saw/examined the patient in room 277-2 She is doing well, no symptoms to note Denies chest pain, denies palpitations, denies shortness of breath +chronic right hip pain Problem List Medical Problems: (1) New onset a-fib Status: Acute (2) Palpitations Status: Acute Review of Systems Constitutional: No chills, No fever Respiratory: No cough, No dyspnea at rest, No dyspnea on exertion, No shortness of breath, No sputum, No wheezing Cardiac: No chest pain, No edema, No palpitations Abdomen: No diarrhea, No nausea, No pain, No vomiting Musculoskeletal: + joint pain (right hip) Medications Current Inpatient Medications Medications (Trade) Dose Ordered Sig/Vladislav Route Start Time Stop Time Status Last Admin Dose Admin Acetaminophen (Tylenol Tab) 650 mg Q4H PRN PO 08/08/16 18:30 09/07/16 18:29 Ondansetron HCl (Zofran Inj) 4 mg Q6H PRN IV 08/08/16 18:30 09/07/16 18:29 Aspirin (Ecotrin Tab) 81 mg QAM PO 08/09/16 09:00 09/08/16 08:59 08/10/16 07:57 81 MG Duloxetine HCl (Cymbalta Cap) 60 mg QAM PO 08/09/16 09:00 09/08/16 08:59 08/10/16 07:57 60 MG Gabapentin (Neurontin Cap) 300 mg QAM PO 08/09/16 09:00 09/08/16 08:59 08/10/16 07:57 300 MG Gabapentin (Neurontin Tab) 600 mg QPM PO 08/08/16 21:00 09/07/16 20:59 08/09/16 21:00 600 MG Levothyroxine Sodium (Synthroid Tab) 100 mcg DAILYBB PO 08/09/16 06:30 09/08/16 06:59 08/10/16 06:54 100 MCG Lorazepam (Ativan Tab) 0.5 mg HS PO 08/08/16 21:00 09/07/16 20:59 08/09/16 20:59 0.5 MG Pantoprazole Sodium (Protonix Tab) 40 mg QPM PO 08/08/16 21:00 09/07/16 20:59 08/09/16 20:59 40 MG Simvastatin (Zocor Tab) 40 mg TuThSa@2100 PO 08/09/16 21:00 09/08/16 20:59 08/09/16 20:59 40 MG Zolpidem Tartrate (Ambien Tab) 10 mg HS PO 08/08/16 21:00 09/07/16 20:59 08/09/16 20:58 10 MG Miscellaneous Information (Order Awaiting Action) 1 ea QS N/A 08/09/16 00:00 09/08/16 00:00 Metoprolol Tartrate (Lopressor Iv) 2.5 mg Q6 PRN IV 08/08/16 19:15 09/07/16 19:14 Enoxaparin Sodium (Lovenox Inj) 90 mg Q12 SQ 08/09/16 09:00 09/08/16 08:59 08/10/16 07:57 90 MG Metoprolol Tartrate (Lopressor Tab) 25 mg BID PO 08/09/16 09:00 09/08/16 08:59 08/10/16 07:55 25 MG Warfarin Sodium (Coumadin Tab) 5 mg DAILY@16 PO 08/10/16 16:00 09/09/16 15:59 Cefuroxime Axetil (Ceftin Tab) 250 mg NOW ONCE PO 08/10/16 08:45 08/10/16 08:46 UNV Cefuroxime Axetil (Ceftin Tab) 250 mg BID PO 08/10/16 09:00 08/13/16 08:59 UNV Objective Vital Signs Date Time Temp Pulse Resp B/P Pulse Ox O2 Delivery O2 Flow Rate FiO2 08/10/16 08:00 Room Air 08/10/16 07:59 96 136/93 08/10/16 07:54 36.5 97 18 99/45 94 Room Air 08/10/16 05:11 36.5 98 16 109/73 94 Room Air 08/10/16 04:00 Room Air 08/10/16 00:00 Room Air 08/09/16 23:50 36.3 92 18 102/71 96 Room Air 08/09/16 21:05 82 127/85 08/09/16 20:00 Room Air 08/09/16 19:37 36.8 86 20 111/76 97 Room Air 08/09/16 16:00 Room Air 08/09/16 15:23 36.5 91 18 105/70 96 Room Air 08/09/16 12:00 Room Air 08/09/16 11:54 36.0 96 20 108/77 95 Nasal Cannula 2.0 Physical Exam General Appearance: no apparent distress ENT: hearing grossly normal Respiratory/Chest: lungs clear, normal breath sounds, no respiratory distress, no accessory muscle use Cardiovascular: no edema, no murmur, + irregularly irregular Abdomen: non tender, soft Extremities: normal inspection, no pedal edema Neurologic/Psychiatric: no motor/sensory deficits, alert, normal mood/affect Laboratory Results Last 24 Hours Test 08/09/16 21:02 08/10/16 03:06 Total Creatine Kinase 40 U/L 27 U/L Creatine Kinase MB 0.7 ng/ml < 0.5 ng/ml Creatine Kinase MB Ratio 1.7 Troponin I < 0.015 ng/ml < 0.015 ng/ml White Blood Count 4.45 K/uL Red Blood Count 3.84 M/uL Hemoglobin 11.7 g/dL Hematocrit 36.2 % Mean Corpuscular Volume 94.3 fL Mean Corpuscular Hemoglobin 30.5 pg Mean Corpuscular Hemoglobin Concent 32.3 g/dl RDW Standard Deviation 47.5 fL RDW Coefficient of Variation 13.8 % Platelet Count 219 K/uL Mean Platelet Volume 9.5 fL Prothrombin Time 10.9 SECONDS Prothromb Time International Ratio 1.0 Sodium Level 143 mmol/L Potassium Level 3.7 mmol/L Chloride Level 107 mmol/L Carbon Dioxide Level 28 mmol/L Anion Gap 8.0 mmol/L Blood Urea Nitrogen 12 mg/dl Creatinine 0.90 mg/dl Est Creatinine Clear Calc Drug Dose 54.9 ml/min Estimated GFR () 73.0 Estimated GFR (Non- 63.0 BUN/Creatinine Ratio 13.3 Random Glucose 102 mg/dl Calcium Level 8.7 mg/dl Magnesium Level 2.0 mg/dl Assessment and Plan This is a 76 year old female with PMH of uterine CA in remission s/p hysterectomy and chemo, HTN, HLD, hypothyroid, anxiety, was sent over for atrial fibrillation during pre-operative examination. Atrial Fibrillation with RVR 2/22 appreciate cardiology input currently still in A. Fib, rate is now controlled will continue b-sin, Lopressor 25mg BID started on Coumadin 5mg daily can d/c with b-sin and Coumadin will need outpatient INR check; will be d/c'd with home health, INR checks at home, will be transmitted to her primary care physician goal INR of 2-3; PCP should adjust dose of Coumadin to reach this goal - will also need to stop anticoagulation for surgery on 08/31 close antithrombotic guidelines post-operatively should be followed to prevent thromboembolism 08/09 patient presented with atrial fibrillation with RVR was given b-sin, CCB in the ER HRs improved to the 90s-100s BP is on the lower end, 105/70 continues to be in A. fib today (08/09) currently anticoagulated with weight based Lovenox/Coumadin TSH wnl electrolytes wnl echo pending cardiology consulted for further input right hip surgery planned for 08/31 Right Hip Osteoarthritis planned surgery replacement of right hip on 08/31 UTI, Klebsiella ceftriaxone d/c'd will start ceftin x 3 days (end date, 08/12) Hypothyroidism TSH wnl continue Synthroid dose Uterine CA last chemo in April 2016 in remission HTN blood pressure on the lower end continue Lopressor 25mg BID, increase if blood pressure allows DVT ppx Lovenox DNR Discharge planning: home with home health
[2016-08-10] MEDS ORDERED: LPR25 PO (09:26)
[2016-08-10] MEDS ORDERED: CMD5 PO (09:26)
[2016-08-10] MEDS ORDERED: CFT250 PO (09:26)
--- NOTE | 2016-08-10 10:07 | Discharge Instructions ---
Discharge Instructions Admission Reason for Admission: New Onset Of A-Fib, A-Fib With Rvr Discharge Discharge Diagnosis / Problem: New onset A. Fib with RVR Discharge Goals Goal(s): Diagnostic testing, Therapeutic intervention Activity Recommendations Activity Limitations: resume your previous activity . Instructions / Follow-Up Instructions / Follow-Up Please follow-up with your primary care physician, Dr. Dilip Blanton on August 17 @ 1:30PM * You will be discharged with Coumadin (blood thinner) - please take this daily - a home health nurse will come in and check INR until you can see Dr. Blanton in one week * There is a Coumadin clinic at [facility] - they can check INR levels for you * You will also be discharged on metoprolol 25mg twice a day to keep your HR from getting too high Current Hospital Diet Patient's current hospital diet: AHA Diet (Heart Healthy) Discharge Diet Recommended Diet: AHA Diet (Heart Healthy) Pending Studies Studies pending at discharge: no Laboratory Results Hemoglobin A1c Test 08/08/16 13:36 Range/Units Estimated Average Glucose 108 mg/dl Hemoglobin A1c 5.4 4.5-5.6 % Medical Emergencies . Who to Call and When: Medical Emergencies: If at any time you feel your situation is an emergency, please call 911 immediately. . Non-Emergent Contact Non-Emergency issues call your: Primary Care Provider, Insurance Administrative Assistant . . "Provider Documentation" section prepared by Harley Salazar. VTE Core Measure Inpt VTE Proph given/why not?: Enoxaparin (Lovenox)SQ, Warfarin (Coumadin)
--- NOTE | 2016-08-10 10:10 | Discharge Summary ---
Discharge Summary Date of Service Aug 10, 2016. Discharge Summary Admission Date: Aug 08, 2016 at 18:18 Discharge Date: Aug 10, 2016 Discharge Disposition: Home with services Principal Diagnosis: New Onset Atrial Fibrillation with RVR Medication Reconciliation New Medications: Cefuroxime Axetil (Cefuroxime Axetil) 250 Mg Tab 250 MG PO BID for 3 Days, #6 TAB Metoprolol Tartrate (Lopressor) 25 Mg Tab 25 MG PO BID for 30 Days, #60 TAB Warfarin Sod (Coumadin) 5 Mg Tab 5 MG PO DAILY@16 for 15 Days, #15 TAB Continued Medications: Aspirin (Aspirin Ec) 81 Mg Tab 81 MG PO QAM Duloxetine Hcl (Cymbalta) 60 Mg Cap 60 MG PO QAM, CAP Gabapentin (Neurontin) 300 Mg Cap 300 MG PO QAM, CAP Gabapentin (Neurontin) 300 Mg Cap 600 MG PO QPM, CAP Levothyroxine Sodium (Synthroid) 100 Mcg Tab 100 MCG PO QAM, TAB Lorazepam (Ativan) 0.5 Mg Tab 0.5 MG PO HS, TAB Meloxicam (Mobic) 7.5 Mg Tab 7.5 MG PO DAILY PRN for Pain, TAB Pantoprazole Sodium (Protonix) 40 Mg Tab 40 MG PO QPM, #30 TAB Simvastatin (Zocor) 40 Mg Tab 40 MG PO 3XWEEK, TAB Monday HS Vitamins C & E (Vitamin C) 1 Cap Cap 1 TAB PO QPM Zolpidem Tartrate (Ambien) 10 Mg Tab 10 MG PO HS, TAB [Vitamin D] () 1 TAB PO QPM Admission Information HPI (per Admitting provider): This is a 76 y/o female with PMH of uterine CA in remission s/p hysterectomy and chemo, history of hypertension, hyperlipidemia hypothyroidism, osteoarthritis, GERD, anxiety, who was sent to the ED from preop testing due to new onset atrial fibrillation. Patient was having preop testing done for R hip replacement scheduled for August [address] Johnson. Pt reports feeling well except for her chronic right hip pain. She notes chronic urinary frequency and urgency. She denies fever, chills, dizziness, focal neuro symptoms, URI symptoms, cough, SOB, chest pain, palpitations, abdominal pain, nausea, vomiting , diarrhea, calf pain, edema, weight gain, history of abnormal bleeding. She was hospitalized in April 2016 in [facility] for 1 day after a mechanical fall in setting of dehydration from chemotherapy. No further falls. She lives alone and ambulates with a cane or walker. She states she was on medication for hypertension in the past but it was d/c in Apr 2016. Denies history of arrhythmia, CAD, valvular disease, CHF, DM, TIA, CVA. Denies having echo done recently. Physical Exam (per Admitting): General Appearance: WD/WN, no apparent distress, + obese, + pertinent finding (pleasant alert elderly female, lying in bed NAD, daughter at bedside) Head: normocephalic, atraumatic Eyes: normal inspection, PERRL, EOMI ENT: hearing grossly normal, pharynx normal Neck: supple, no JVD, trachea midline Respiratory/Chest: lungs clear, normal breath sounds, no respiratory distress, no accessory muscle use Cardiovascular: regular rate, rhythm, no murmur Abdomen/GI: normal bowel sounds, non tender, soft Extremities/Musculoskelatal: no calf tenderness, normal capillary refill, + pertinent finding (trace pretibial edema bilaterally) Neurologic/Psych: alert, normal mood/affect, oriented x 3, + pertinent finding (grossly nonfocal) Skin: normal color, warm/dry Hospital Course This is a 76 year old female with PMH of uterine CA in remission s/p hysterectomy and chemo, HTN, HLD, hypothyroid, anxiety, was sent over for atrial fibrillation during pre-operative examination. Atrial Fibrillation with RVR 08/10 appreciate cardiology input currently still in A. Fib, rate is now controlled will continue b-sin, Lopressor 25mg BID started on Coumadin 5mg daily can d/c with b-sin and Coumadin will need outpatient INR check; will be d/c'd with home health, INR checks at home, will be transmitted to her primary care physician goal INR of 2-3; PCP should adjust dose of Coumadin to reach this goal - will also need to stop anticoagulation for surgery on 08/31 close antithrombotic guidelines post-operatively should be followed to prevent thromboembolism 08/09 patient presented with atrial fibrillation with RVR was given b-sin, CCB in the ER HRs improved to the 90s-100s BP is on the lower end, 105/70 continues to be in A. fib today (08/09) currently anticoagulated with weight based Lovenox/Coumadin TSH wnl electrolytes wnl echo pending cardiology consulted for further input right hip surgery planned for 08/31 Right Hip Osteoarthritis planned surgery replacement of right hip on 08/31 UTI, Klebsiella ceftriaxone d/c'd will start ceftin x 3 days (end date, 08/12) Hypothyroidism TSH wnl continue Synthroid dose Uterine CA last chemo in April 2016 in remission HTN blood pressure on the lower end continue Lopressor 25mg BID, increase if blood pressure allows DVT ppx Lovenox DNR Discharge planning: home with home health Total time spent on discharge = 35 minutes This includes examination of the patient, discharge planning, medication reconciliation, and communication with other providers. Discharge Instructions Please follow-up with your primary care physician, Dr. Dilip Blanton on August 17 @ 1:30PM * You will be discharged with Coumadin (blood thinner) - please take this daily - a home health nurse will come in and check INR until you can see Dr. Blanton in one week * There is a Coumadin clinic at [facility] - they can check INR levels for you * You will also be discharged on metoprolol 25mg twice a day to keep your HR from getting too high Additional Copies To Dilip Blanton M.D.
[2016-08-10 11:57] VITALS: BP 116/79; PULSE 95; TEMP 36.5; O2SAT 95
[2016-08-10 15:11] VITALS: BP 107/71; PULSE 96; TEMP 36.8; O2SAT 94
[2016-08-10] MEDS ORDERED: WARFARIN SOD 5 MG TAB PO SCH (16:00)
--- NOTE | 2016-08-10 16:04 | Cardiology Follow-Up ---
Subjective General Date of Service: Aug 10, 2016. Chief Complaint: follow up atrial fibrillation Pt evaluation today including: conversation w/ family History of Present Illness The patient is a 76 year old female seen in follow up. Pt feels well. Rate better controlled on metoprolol. Allergies Coded Allergies: No Known Allergies (Unverified , 08/08/16) Social History Smoking Status: Never Smoker Hx Tobacco Use In Past Year?: No Hx Alcohol Use - Type And Amou: No Hx Substance Use - Type And Am: No Problem List Medical Problems: (1) New onset a-fib Status: Acute (2) Palpitations Status: Acute Physical Exam Vital Signs Last Vital Signs Documentation Date Time Temp Pulse Resp B/P Pulse Ox O2 Delivery O2 Flow Rate FiO2 08/10/16 15:11 36.8 96 20 107/71 94 Room Air 08/09/16 11:54 2.0 Physical Exam Constitutional: Level of Distress: NAD Neck: supple, trachea midline Lungs: Auscultation: no wheezing, no rales/crackles, no rhonchi Cardiovascular: Heart Auscultation: no murmurs, irregular rate rhythm Extremities: no edema Neurologic: Gait & Station: pertinent finding (no focal deficits ) Assessment and Plan Assessment and Plan FINAL IMPRESSION: 76-year-old female with: 1. Newly recognized atrial fibrillation, mildly elevated ventricular rate on admission. 2. Incomplete right bundle-branch block. 3. Dyslipidemia. 4. Urinary tract infection. 5. Osteoarthritis, pending upcoming hip replacement proposed for 08/31/2016. PLAN: Stable for DC on metoprolol 25 mg BID. Coumadin 5 mg daily without bridge. Pt to follow up with PCP who will take over coumadin monitoring. Stable from cardiac perspective for upcoming hip surgery. Hold coumadin 5 days prior to OR. Follow up post surgery with cardiology to consider cardioversion if still in AF. Pt can follow up with our group or closer to home. Chino Rios DO Laboratory Results Last 24 Hours Test 08/09/16 21:02 08/10/16 03:06 Total Creatine Kinase 40 U/L 27 U/L Creatine Kinase MB 0.7 ng/ml < 0.5 ng/ml Creatine Kinase MB Ratio 1.7 Troponin I < 0.015 ng/ml < 0.015 ng/ml White Blood Count 4.45 K/uL Red Blood Count 3.84 M/uL Hemoglobin 11.7 g/dL Hematocrit 36.2 % Mean Corpuscular Volume 94.3 fL Mean Corpuscular Hemoglobin 30.5 pg Mean Corpuscular Hemoglobin Concent 32.3 g/dl RDW Standard Deviation 47.5 fL RDW Coefficient of Variation 13.8 % Platelet Count 219 K/uL Mean Platelet Volume 9.5 fL Prothrombin Time 10.9 SECONDS Prothromb Time International Ratio 1.0 Sodium Level 143 mmol/L Potassium Level 3.7 mmol/L Chloride Level 107 mmol/L Carbon Dioxide Level 28 mmol/L Anion Gap 8.0 mmol/L Blood Urea Nitrogen 12 mg/dl Creatinine 0.90 mg/dl Est Creatinine Clear Calc Drug Dose 54.9 ml/min Estimated GFR () 73.0 Estimated GFR (Non- 63.0 BUN/Creatinine Ratio 13.3 Random Glucose 102 mg/dl Calcium Level 8.7 mg/dl Magnesium Level 2.0 mg/dl
[2016-08-10 16:14] VITALS: BP 107/71; PULSE 96; TEMP 36.8; O2SAT 94
[2016-08-10] MEDS ORDERED: CEFUROXIME AXETIL 250 MG TAB PO SCH (21:00)
[2016-09-22] MEDS ORDERED: CMD5 PO (16:09)
[2016-09-22] MEDS ORDERED: ENOX30IN4 SQ (16:09)
[2016-09-22] MEDS ORDERED: METO50TA16 PO (16:09)
[2016-09-23] MEDS ORDERED: ENOX80IN SQ (06:11)
[2016-10-03] MEDS ORDERED: ENOX80IN SQ (16:17)
[2016-10-03] MEDS ORDERED: METO50TA7 PO (16:21)
[2016-10-03] MEDS ORDERED: METO1TAB69 PO (16:21)
[2016-10-06] MEDS ORDERED: DIGO0.1219 PO (16:46)
[2016-10-17] MEDS ORDERED: CMD5 PO (10:47)
[2016-10-17] MEDS ORDERED: CLC100 PO (10:47)
[2016-10-17] MEDS ORDERED: ACET-1138 PO (10:47)
[2016-10-17] MEDS ORDERED: RXC5 PO (10:47)
[2016-10-17] MEDS ORDERED: ULT50X PO (10:47)
[2016-10-17] MEDS ORDERED: MULT-589 PO (10:47)
[2016-10-17] MEDS ORDERED: SNK PO (10:47)
[2016-10-17] MEDS ORDERED: LVNIS40 SQ (10:47)
== END 2016-08-10 17:21 | disposition home health service (06) | DRG 309 ==
LOC: ENRESERVTM → ENRESERVDT → C.EDB 13:50 → C.EDINP 18:18 → C.MED 08-09 00:13
PROVIDERS: ADMIT Internal Medicine; ATTEND Family Medicine
DX: I48.91 Unspecified atrial fibrillation (principal); N39.0 Urinary tract infection, site not specified; K21.9 Gastro-esophageal reflux disease without esophagitis; G89.29 Other chronic pain; E66.9 Obesity, unspecified; F41.9 Anxiety disorder, unspecified; E03.9 Hypothyroidism, unspecified; E78.5 Hyperlipidemia, unspecified; I45.19 Other right bundle-branch block; I10 Essential (primary) hypertension; B96.1 Klebsiella pneumoniae [K. pneumoniae] as the cause of diseases classified elsewhere; M16.11 Unilateral primary osteoarthritis, right hip; Z92.21 Personal history of antineoplastic chemotherapy; Z85.42 Personal history of malignant neoplasm of other parts of uterus; Z90.710 Acquired absence of both cervix and uterus; Z87.19 Personal history of other diseases of the digestive system; Z66 Do not resuscitate; Z96.651 Presence of right artificial knee joint; Z79.82 Long term (current) use of aspirin; Z79.899 Other long term (current) drug therapy; Z79.1 Long term (current) use of non-steroidal anti-inflammatories (NSAID); Z68.38 Body mass index [BMI] 38.0-38.9, adult

== ENCOUNTER 2016-09-02 05:36 | Inpatient (IN) | payer OTHER ==
[2016-08-08 12:50] VITALS: BMI 39.0
[2016-08-08 13:09] VITALS: BMI 39.0
--- NOTE | 2016-08-08 13:26 | PAT Medication Instructions ---
Service Date Aug 08, 2016. Current Home Medication List Aspirin (Aspirin Ec), 81 MG PO QAM Duloxetine Hcl (Cymbalta), 60 MG PO QAM Gabapentin (Neurontin), 300 MG PO QAM Gabapentin (Neurontin), 600 MG PO QPM Levothyroxine Sodium (Synthroid), 100 MCG PO QAM Lorazepam (Ativan), 0.5 MG PO HS Meloxicam (Mobic), 7.5 MG PO PRN Pantoprazole Sodium (Protonix), 40 MG PO QPM Simvastatin (Zocor), 40 MG PO 3XWEEK Vitamins C & E (Vitamin C), 1 TAB PO QPM Zolpidem Tartrate (Ambien), 10 MG PO HS [Vitamin D], 1 TAB PO QPM Medication Instructions For Your Scheduled Surgery Meloxicam (Mobic), 7.5 MG PO PRN (per surgeon instructions) - Take the following medications the morning of surgery with a sip of water: Simvastatin (Zocor), 40 MG PO 3XWEEK Levothyroxine Sodium (Synthroid), 100 MCG PO QAM Gabapentin (Neurontin), 300 MG PO QAM Duloxetine Hcl (Cymbalta), 60 MG PO QAM Aspirin (Aspirin Ec), 81 MG PO QAM (okay to continue per surgeon for instructions) - Take the following medications as scheduled the night before surgery: [Vitamin D], 1 TAB PO QPM Zolpidem Tartrate (Ambien), 10 MG PO HS Vitamins C (Vitamin C), 1 TAB PO QPM Pantoprazole Sodium (Protonix), 40 MG PO QPM Lorazepam (Ativan), 0.5 MG PO HS Gabapentin (Neurontin), 600 MG PO QPM If you have any questions please call us at [phone] (Gloria Richardson PA-C) or [phone] or [phone]
[2016-08-08 14:11] LABS: BASO % 0.4 %; BASO ABS # 0.02 K/uL (0-0.2); COMPLETE YES; EOS % 3.6 %; HEMATOCRIT 38.9 % (37-47); IG% 0.5 %; LYMPH % 21.8 %; LYMPH ABS # 1.21 K/uL (1.2-3.4); MEAN CELL VOLUME 95.1 fL (80-100); MEAN CORPUSCULAR HEMOGLOBIN 31.8 pg (25-34); MEAN CORPUSCULAR HGB CONC 33.4 g/dl (32-36); MEAN PLATELET VOLUME 9.6 fL (7.4-10.4); MONO % 8.8 %; NEUT % 64.9 %; PLATELET COUNT 239 K/uL (130-400); RED BLOOD COUNT 4.09 M/uL (4.2-5.4); WHITE BLOOD COUNT 5.55 K/uL (4.8-10.8)
[2016-08-08 14:14] LABS: MANUAL MICROSCOPIC REQUIRED? NO; REVIEW REQ? NO; URINE APPEARANCE CLOUDY (CLEAR); URINE BILIRUBIN NEG (NEG); URINE COLOR YELLOW; URINE EPITHELIAL CELL AUTO >30 /lpf (0-5); URINE NITRITE POS (NEG); URINE PH 5.5 (4.5-7.5); URINE SPECIFIC GRAVITY 1.019 (1.000-1.030); UROBILINOGEN NEG (NEG)
[2016-08-08 14:15] LABS: PROTHROMBIN TIME (PATIENT) 10.4 SECONDS (9.0-12.0)
[2016-08-08 14:25] LABS: ESTIMATED AVERAGE GLUCOSE 108 mg/dl; HA1C FLAG Normal (Normal)
[2016-08-08 16:24] LABS: BUN/CREATININE RATIO 14.7 (10-20); CALCIUM 9.3 mg/dl (8.5-10.1); CREATININE 0.97 mg/dl (0.60-1.20); POTASSIUM 4.2 mmol/L (3.5-5.1)
--- NOTE | 2016-08-12 12:35 | Anesthesiology Progress Note ---
Anesthesia Progress Note Date of Service Aug 12, 2016. Progress Notes Received note from OR that patient's surgery has been cancelled by surgeon. Spoke with Leonor at surgeon's office who confirmed that patient's surgery is cancelled at this time for UTI/new onset a. fib with RVR. She states that patient will need cardio clearance and PCP to followup on UTI prior to rescheduling her for surgery. She states that patient was made aware of the above. Gloria Richardson PA-C 08/12/16
--- NOTE | 2016-09-01 21:07 | HISTORY & PHYSICAL EXAMINATION ---
DATE OF ADMISSION: 09/02/2016 CHIEF COMPLAINT: Right hip pain. HISTORY OF PRESENT ILLNESS: This is a patient who has been treated conservatively with right hip osteoarthritis. She had been treated with activity modification, anti-inflammatory medications and corticosteroid injections; however, she has failed all conservative management and she is now being set up for right total hip arthroplasty. PAST MEDICAL HISTORY: History of uterine carcinoma with a hysterectomy and chemotherapy that was completed in April of 2016, hypertension, anxiety, GERD, obesity, dyslipidemia and recently diagnosed atrial fibrillation in July of this year. CURRENT MEDICATIONS: Neurontin 300 mg 1 p.o. t.i.d., aspirin 81 mg 1 p.o. daily, Levoxyl 100 mcg 1 p.o. daily, Meloxicam 7.5 mg 1 p.o. daily, Ativan 0.5 mg 1 p.o. q. 6 hours as needed for anxiety, Prinivil 20 mg 1 p.o. daily, Protonix 40 mg 1 p.o. daily, tramadol 50 mg 1 p.o. q. 6 hours p.r.n. for pain, Zocor 40 mg 1 p.o. daily, Coumadin 5 mg 1 p.o. daily, Lopressor 25 mg 1 p.o. t.i.d., and Ambien 10 mg one p.o. at bedtime. ALLERGIES: No known drug allergies. FAMILY HISTORY: Noncontributory. SOCIAL HISTORY: The patient denies alcohol and tobacco use. PAST SURGICAL HISTORY: Hysterectomy. OBJECTIVE PHYSICAL EXAMINATION: GENERAL: The patient is alert and oriented x3. She is in no acute distress. She is a well-dressed, well-nourished 76-year-old female and her affect is appropriate. HEART: Has an irregular rhythm and rate, which is tachycardic. There are no murmurs noted. LUNGS: Clear to auscultation bilateral. Dorsalis pedis, posterior tib pulse +2/4. Cap refill is less than 2 seconds. LYMPHATIC: No evidence of any swollen lymph nodes. MUSCULOSKELETAL: The patient has an antalgic gait favoring the right lower extremity. Upon inspection of the right hip, there is no ecchymosis, no erythema noted. There is no significant swelling noted. She has tenderness in the right groin. There is pain with internal and external rotation of the right hip. There is a positive Miri exam. She has decreased strength right lower extremity secondary to pain. SKIN: There are no scars, rashes or ulcers noted. NEUROLOGIC: Sensation normal and intact distally. X-RAY EXAM: Multiple views of the right hip demonstrate severe endstage osteoarthritis of the right hip. ASSESSMENT AND DIAGNOSIS: Right hip osteoarthritis. PLAN: Above assessment was discussed with the patient. At this time, it was recommended the patient undergo a right hip total hip arthroplasty. All potential risks, benefits, complications, alternatives and rehab have been discussed with the patient. At this time, she wishes to proceed with the surgery as indicated. As per the patient's cardiology clearance, the patient is to continue her aspirin up until the day of surgery and she will then begin Coumadin postoperatively for DVT and stroke prophylaxis. She will be scheduled for the surgery on 09/02/2016.
[~2016-09-02] VITALS: Ht 152.4 cm; Wt 92.3 kg
[~2016-09-02 05:36] MED LIST changes: +CFT250 PO; +CMD5 PO; +LPR25 PO
[2016-09-02] MEDS ORDERED: LACTATED RINGER'S 1000ML 1,000 ML IV SCH (06:00)
[2016-09-02] MEDS ORDERED: LACTATED RINGER'S 1000ML IV SCH (06:00)
[2016-09-02] MEDS ORDERED: CeleBREX 200 MG CAP PO SCH (06:00)
[2016-09-02] MEDS ORDERED: FAMOTIDINE 20 MG TAB PO SCH (06:00)
[2016-09-02] MEDS ORDERED: GABAPENTIN 300 MG CAP PO SCH (06:00)
[2016-09-02] MEDS ORDERED: ACETAMINOPHEN 500 MG TAB PO SCH (06:00)
[2016-09-02] MEDS ORDERED: CEFAZOLIN 2000 MG/60 ML D5W 60 ML IV SCH (06:00)
[2016-09-02] MEDS ORDERED: DEXAMETHASONE 4 MG TAB PO SCH (06:00)
[2016-09-02] MEDS ORDERED: METOCLOPRAMIDE HCL 10 MG TAB PO SCH (06:00)
[2016-09-02 06:21] VITALS: BP 124/97; PULSE 102; TEMP 36.8; O2SAT 99; BMI 39.0
[2016-09-02] MEDS: TRANEXAMIC ACID INJ 1,000 MG in SODIUM CHLORIDE 0.9% 100ML 100 ML IV SCH ×2 (06:30→06:50)
[2016-09-02] MEDS ORDERED: BUPIVACAINE 0.5 % 5 MG/1 ML PF 10ML VIAL ONE (06:30)
[2016-09-02 06:31] LABS: INR 1.1 (0.9-1.1); PARTIAL THROMBOPLASTIN RATIO 1.1
[2016-09-02] MEDS ORDERED: POVIDONE-IODINE OP SOLN 30 ML BTL ONE (06:58)
[2016-09-02] MEDS ORDERED: ORTHO JOINT ANESTHETIC ONE (06:58)
[2016-09-02] MEDS ORDERED: BACITRACIN 50000 UNIT VIAL ONE (06:59)
[2016-09-02] MEDS ORDERED: FENTANYL CITRATE INJ 50 MCG/1 ML 2 ML VIAL ONE (07:00)
[2016-09-02] MEDS ORDERED: MIDAZOLAM HCL 1 MG/ML 2ML VIAL ONE (07:00)
[2016-09-02] MEDS ORDERED: KETAMINE HCL INJ 50 MG/ML 10 ML VIAL ONE (07:04)
[2016-09-02] MEDS ORDERED: ROPIVACAINE 5MG/ML 30 ML 150 MG, BUPIVACAINE/EPINEPHR 0.5% MPF 30 ML, KETOROLAC TROMETH... INFIL SCH ×7 (07:45)
--- NOTE | 2016-09-02 07:49 | History & Physical Bridge Note ---
H&P Re-Evaluation Bridge Note: I have examined the patient, reviewed the History & Physical and in the interval since the performance of the History & Physical I have noted the following changes of clinical significance: No changes noted
--- NOTE | 2016-09-02 09:02 | CARDIOLOGY CONSULTATION ---
DATE OF CONSULTATION: 09/02/2016 REFERRING PHYSICIAN: Anesthesia. REASON FOR CONSULTATION: Atrial fibrillation with rapid ventricular response. HISTORY OF PRESENT ILLNESS: This is a 76-year-old female who lives independently and until recently had minimal cardiac history. In July, she was admitted to [facility] with new atrial fibrillation. She was started on metoprolol and Coumadin. An echocardiogram was performed that showed grossly normal left ventricular function and no significant valvular pathology. The patient has had severe degenerative joint disease of her hip and was scheduled for a total hip replacement today. Her primary crop consultant is Dr. Rios. He saw her in the office on August 29 and cleared her for surgery. She was taken off of her Coumadin and was asked to continue to take her metoprolol even in the morning of the surgery; however, she presented to the preanesthesia area with atrial fibrillation and RVR. She did not take her metoprolol at home prior to coming to surgery. She was given a total of 5 mg of Lopressor by anesthesia, which did slow her heart rate down, but then she became hypotensive. She has been given a total of 2 liters of IV fluid and her blood pressure is recovering. She has no current complaints. She denies chest pain or shortness of breath. She has had no dizziness or lightheadedness. ALLERGIES: No known medical allergies. PAST MEDICAL HISTORY: As outlined above, she recently was diagnosed with newly discovered atrial fibrillation, which according to notes, she has been completely asymptomatic. It was decided to treat her with rate control and anticoagulation. Recent echocardiogram shows preserved left ventricular systolic function. She also has a history of uterine carcinoma and a received a hysterectomy with 4 treatments of chemotherapy in 2016. She has been treated for hypertension, GERD, dyslipidemia and anxiety. SOCIAL HISTORY: She lives independently. She is a nonsmoker. FAMILY MEDICAL HISTORY: Noncontributory. REVIEW OF SYSTEMS: The 10-point review of systems is negative except for the history of chief complaint. PHYSICAL EXAMINATION: GENERAL: She is alert and oriented, in no acute distress. VITAL SIGNS: Blood pressure is 96/70 and pulse is irregular at 110 beats per minute. She is afebrile. HEENT: She is normocephalic. Pupils are equal and reactive to light. Extraocular muscles are intact bilaterally. NECK: The neck veins are flat. Carotids have good upstrokes bilaterally without bruits. Thyroid is nonpalpable. RESPIRATORY: Breath sounds equal bilaterally and clear to auscultation. CARDIOVASCULAR: Heart has an irregular rhythm. Normal S1 and S2. No S3 or S4. No cardiac rubs or murmurs. GASTROINTESTINAL: Abdomen is soft and nontender without organomegaly. EXTREMITIES: Free of edema, digit clubbing, or cyanosis. NEUROLOGIC: Grossly intact. SKIN: Warm to touch. LYMPH NODES: Negative to palpation. LABORATORY DATA: Pending. IMPRESSION: 1. Atrial fibrillation with rapid ventricular response. 2. Degenerative joint disease of the hip. RECOMMENDATIONS: At this point, I think we should postpone her surgery not only in light of the atrial fibrillation with RVR, but also the hypotension that resulted from her beta sin. We will watch her overnight. We could possibly have her surgery completed either at a later date or even prior to her returning home if she remains clinically stable and after her medical therapy was adjusted. We will follow along with you during her hospital stay.
[2016-09-02] MEDS ORDERED: PHENYLEPHRINE 100MCG/ML 5ML SYR ONE (09:11)
[2016-09-02] MEDS ORDERED: METOPROLOL TARTRATE 1 MG/ML VIAL ONE (09:11)
--- NOTE | 2016-09-02 09:41 | Anesthesiology Progress Note ---
Anesthesia Progress Note Date of Service Sep 02, 2016. Progress Notes The patient is a 76 y/o female with a h/o newly diagnosed atrial fibrillation, HTN, DLD, GERD, hypothyroidism, uterine CA and anxiety who was scheduled for R LUPIS with Dr. Johnson this morning. The patient was initially scheduled in July, however she was found to be in Afib with RVR during her preop testing. She was referred to Dr. iRos who performed an echocardiogram and started her on metoprolol and coumadin. The patient has been holding coumadin for surgery. The patient presented to [facility] today in atrial fibrillation with uncontrolled HR. She did not take her metoprolol this morning, although she was instructed by Dr. Rios to make sure that she takes it the morning of surgery. The patient states that she has to take many medications and that she often gets confused about which ones to take. Her HR on arrival was between 90s -low 110s however as the patient was being admitted her HR increased to the 120s. Her preoperative BP was 124/97. The patient was initially given 3mg IV metoprolol to attempt to control her HR. Her HR did not significantly improve so she was given an additional 2mg IV metoprolol. Her HR did improve to the low 100s , but her BP decreased to 70-80s/60s. The patient remained asymptomatic. She was given a total of 800mcg IV phenylephrine and 1 L crystalloid. Her BP is now holing in the 80s-90s/60s without pressors. Dr. Ruiz was called and he came to the bedside to evaluate the patient. He agreed that the patient's surgery should be cancelled due to uncontrolled HR and hypotension. He will be admitted the patient to telemetry for further evaluation and treatment. He will continue to follow her on the floor. The medicine team is also being consulted.
[2016-09-02] MEDS ORDERED: ACETAMINOPHEN 325 MG TAB PO PRN (10:15)
[2016-09-02] MEDS ORDERED: ONDANSETRON INJ 2 MG/ML 2 ML VIAL IV PRN (10:15)
[2016-09-02 10:46] VITALS: BP 127/87; PULSE 99; TEMP 36.5; Ht 152.4 cm; Wt 92.3 kg
[2016-09-02] MEDS ORDERED: ASPIRIN 81 MG ECTAB PO ONE (11:00)
--- NOTE | 2016-09-02 11:15 | History and Physical ---
History & Physical Date & Time of Service: Sep 02, 2016 at 10:23 Chief Complaint: Right Hip Degenerative Joint Disease Primary Care Physician: Dilip Blanton M.D. History of Present Illness Source: patient, clinic records, hospital records This is a 76 y/o female with PMH of atrial fibrillation recently diagnosed, HTN , HL, hypothyroidism, and other problems listed below who presented to [facility] for right total hip replacement by Dr. Johnson and was found to be in Afib with RVR. Patient was admitted at [facility] Aug [id number] for new onset Afib and was discharged on Lopressor 25 mg BID and Coumadin. Echo during that admission showed grossly normal LV EF and no significant valvular pathology. She followed up with cardiology Dr. Rios as an outpatient. Her Coumadin has been on hold since 08/1016 although she was told to hold only 5 days prior to surgery. She was supposed to continue metoprolol including on the morning of surgery but did not take it this morning. Patient was found to be in Afib with RVR in preop area. Patient was given IV Lopressor 5 mg which improved her heart rate but caused her to become hypotensive. She was given IVF's and phenylephrine and BP has improved to 90s systolic as she is finishing her second liter. She reports being asymptomatic throughout the morning. Denies dizziness, palpitations, chest pain, shortness of breath. She is not having any pain currently. Patient was seen by cardiology in preop area. Surgery is postponed and patient will be admitted to telemetry. Past Medical/Surgical History Medical Problems: (1) Anxiety Status: Chronic (2) Atrial fibrillation Status: Chronic (3) GERD (gastroesophageal reflux disease) Status: Chronic (4) History of diverticulitis Status: Chronic (5) History of hypertension Status: Chronic (6) Osteoarthritis Status: Chronic (7) Uterine cancer Permanent Comment: in remission s/p hysterectomy and chemo completed Apr 2016 Status: Resolved Surgical Problems: (1) H/O right knee surgery Status: Chronic (2) History of lumbar surgery Status: Chronic (3) S/P appendectomy Status: Chronic (4) S/P BSO (bilateral salpingo-oophorectomy) Status: Chronic (5) S/P cholecystectomy Status: Chronic (6) S/P shoulder surgery Status: Chronic (7) S/P total hysterectomy Status: Resolved Family History Patient reports no known family medical history. Social History Smoking Status: Never Smoker Drug Use: none Housing status: lives alone Allergies Coded Allergies: No Known Allergies (Unverified , 09/02/16) Home Medications Scheduled Aspirin (Aspirin Ec), 81 MG PO QAM Duloxetine Hcl (Cymbalta), 60 MG PO QAM Gabapentin (Neurontin), 300 MG PO QAM Gabapentin (Neurontin), 600 MG PO QPM Levothyroxine Sodium (Synthroid), 100 MCG PO QAM Lorazepam (Ativan), 0.5 MG PO HS Metoprolol Tartrate (Lopressor), 25 MG PO BID Pantoprazole Sodium (Protonix), 40 MG PO QPM Simvastatin (Zocor), 40 MG PO 3XWEEK Vitamins C & E (Vitamin C), 1 TAB PO QPM Warfarin Sod (Coumadin), 5 MG PO DAILY@16 Zolpidem Tartrate (Ambien), 10 MG PO HS [Vitamin D], 1 TAB PO QPM Scheduled PRN Meloxicam (Mobic), 7.5 MG PO DAILY PRN for Pain Review of Systems Constitutional: No chills, No fever Eyes: No worsening of vision ENT: No nasal symptoms Respiratory: No cough, No dyspnea on exertion, No shortness of breath Cardiovascular: No chest pain, No edema, No palpitations Abdomen: No GI bleeding, No diarrhea, No nausea, No pain, No vomiting Musculoskeletal: No calf pain Genitourinary - Female: + urinary frequency (chronic- no change from baseline) , No dysuria Neurologic: No numbness/tingling, No problem reported (no dizziness), No weakness Hematologic / Lymphatic: No problem reported (denies abnormal bleeding including epistaxis or gum bleeding) Integumentary: No new/changing skin lesions Physical Exam Vital Signs Date Time Temp Pulse Resp B/P Pulse Ox O2 Delivery O2 Flow Rate FiO2 09/02/16 10:10 104 16 101/72 95 Room Air 09/02/16 10:01 106 16 88/55 96 Room Air 09/02/16 09:50 104 16 95/58 95 Room Air 09/02/16 09:40 107 16 101/76 95 Room Air 09/02/16 09:33 101 16 97/78 97 Room Air 09/02/16 09:20 117 16 105/74 97 Room Air 09/02/16 09:10 93 16 94/67 95 Room Air 09/02/16 09:00 100 16 83/68 94 Room Air 09/02/16 08:50 100 16 89/63 94 Room Air 09/02/16 08:45 100 16 88/62 94 Room Air 09/02/16 08:44 93 16 76/41 95 Room Air 09/02/16 08:42 93 16 86/67 95 Room Air 09/02/16 08:40 103 16 87/66 95 Room Air 09/02/16 08:38 103 16 83/61 100 Room Air 09/02/16 08:36 101 16 96/66 96 Room Air 09/02/16 08:32 93 16 79/55 97 Room Air 09/02/16 08:30 101 16 84/63 98 Room Air 09/02/16 08:28 101 16 82/61 98 Room Air 09/02/16 06:21 36.8 102 18 124/97 99 Room Air General Appearance: no apparent distress, + obese, + pertinent finding ( pleasant alert 76 year old female, no distress) Head: normocephalic, atraumatic Eyes: normal inspection, PERRL, EOMI ENT: hearing grossly normal, pharynx normal Neck: supple, trachea midline Respiratory/Chest: lungs clear, normal breath sounds, no respiratory distress, no accessory muscle use Cardiovascular: no murmur, + irregularly irregular (rate 100) Abdomen/GI: normal bowel sounds, non tender, soft Extremities/Musculoskelatal: no calf tenderness, no pedal edema Neurologic/Psych: alert, normal mood/affect, oriented x 3, + pertinent finding (grossly nonfocal) Skin: normal color, warm/dry Diagnostics Laboratory Results Results Past 24 Hours Test 09/02/16 06:10 Range/Units Prothrombin Time 12.0 9.0-12.0 SECONDS Prothromb Time International Ratio 1.1 0.9-1.1 Activated Partial Thromboplast Time 28.3 21.0-31.0 SECONDS Partial Thromboplastin Ratio 1.1 EKG AF with RVR, rate 108, LAD, incomplete RBBB Impression Assessment and Plan AFIB WITH RVR AF recently diagnosed in Jul 2016; echo at that time showed grossly normal LV EF and no significant valvular pathology Presented for right hip replacement and found to be in AF RVR after missing this morning's home dose of Lopressor Treated with 1 dose IV Lopressor 5 mg IV which resulted in hypotension- improved with phenylephrine and IVF's Check CBC, electrolytes, repeat echo Continue PO Lopressor 25 mg BID As per Dr. Rios's clinic note, patient should continue baby aspirin and hold on morning of surgery (had been holding ASA past 1 week) Continue to hold Coumadin for upcoming surgery Pt seen by cardiology- Dr. Ruiz; appreciate recommendations HYPOTENSION Secondary to IV Lopressor Treated with phenylephrine and IVF's; improved to 90s systolic on the end of second liter Will give additional IVF's 500 mL at 125/hour RIGHT HIP OA Was scheduled for right LUPIS 09/02/16- postponed due to AF with RVR Consult orthopedic surgery- Dr. Johnson HYPOTHYROIDISM Continue levothyroxine ANXIETY Continue Cymbalta and Lorazepam UTERINE CANCER S/p surgery and chemo; in remission DVT PROPHYLAXIS SCD's Coumadin on hold for upcoming procedure CODE STATUS DNR per my discussion with the patient DISPOSITION Lives alone Follows with Dr. Jaramillo for primary care Patient seen in collaboration with Dr. Salazar. Please see his addendum. ADDENDUM: This is a 76 year old female with PMH of A. Fib on Coumadin, uterine CA in remission s/p hysterectomy, HTN, HLD, hypothyroid was brought here for right hip LUPIS which was postponed due to patient being in A. Fib with RVR. Patient was given a dose of IV lopressor and HRs improved, but BP also dropped. She is asymptomatic, denies palpitations, chest pain or shortness of breath A. Fib with RVR surgery is now postponed will restart b-sin (she did not take this this morning) IV heparin started echo shows normal LVEF, no other significant findings monitor in tele cardiology consulted Right Hip OA orthopedic consulted patient's daughter wants patient to remain in hospital until surgery can be performed Advanced Directives Existing Living Will: Yes Existing Power of Financial Recruiter: Yes VTE Prophylaxis VTE Risk Assessment Done? Y/N: Yes Risk Level: Moderate
[2016-09-02 11:25] LABS: BASO % 0.3 %; BASO ABS # 0.02 K/uL (0-0.2); EOS % 0.8 %; HEMATOCRIT 35.9 % (37-47); IG% 0.5 %; LYMPH % 10.7 %; LYMPH ABS # 0.68 K/uL (1.2-3.4); MEAN CELL VOLUME 93.5 fL (80-100); MEAN CORPUSCULAR HEMOGLOBIN 30.2 pg (25-34); MEAN PLATELET VOLUME 9.8 fL (7.4-10.4); MONO % 2.4 %; NEUT % 85.3 %; PLATELET COUNT 216 K/uL (130-400); RED BLOOD COUNT 3.84 M/uL (4.2-5.4); WHITE BLOOD COUNT 6.38 K/uL (4.8-10.8)
[2016-09-02 11:51] LABS: BUN/CREATININE RATIO 15.7 (10-20); CREATININE 0.87 mg/dl (0.60-1.20); POTASSIUM 4.3 mmol/L (3.5-5.1)
[2016-09-02] MEDS: SODIUM CHLORIDE 0.9% 1000ML 1,000 ML IV SCH ×2 (12:08→20:11)
[2016-09-02 12:25] LABS: COMPLETE YES; MEAN CORPUSCULAR HGB CONC 32.3 g/dl (32-36)
[2016-09-02] MEDS ORDERED: PNEUMOCOCCAL POLYSACCHARIDES 25 MCG/0.5 ML VIAL/SYR IM. ONE (12:30)
[2016-09-02] MEDS ORDERED: INFLUENZA ADMINISTRATION CHARGE ONE (12:30)
[2016-09-02] MEDS ORDERED: INFLUENZA VIRUS QUAD VACCINE 0.5 ML SYR IM. ONE (12:30)
[2016-09-02] MEDS ORDERED: PNEUMOCOCCAL ADMINISTRATION CHARGE ONE (12:30)
--- NOTE | 2016-09-02 12:45 | ECHOCARDIOGRAM REPORT ---
*NOTICE TO RECEIVING CONSTITUTION PARTY AGENCY This information is strictly Confidential and protected under [place] law. [place] law prohibits you from making any further disclosure of this information unless further disclosure is expressly permitted by the written consent of the person to whom it pertains or is authorized by law. A general authorization for the release of medical or other information is not sufficient for this purpose. Hospital accepts no responsibility if the information is made available to any other person, INCLUDING THE PATIENT. Interpretation Summary * Name: KIRIT PATEL Study Date: 09/02/2016 11:27 AM BP: 127/87 mmHg * Patient Location: C.2T\S\S229\S\2 HR: 102 * : 1940 (M/d/yyyy) Gender: Female Height: 60 in * Age: 76 yrs Ethnicity: CA Weight: 201 lb * Ordering Physician: Elsie Jara * Referring Physician: Pankaj Johnson D.O. * Performed By: Renetta Brown RCS * * Reason For Study: A-FIB * BSA: 1.9 m2 * -- Conclusions -- * There is moderate concentric left ventricular hypertrophy. * Ejection Fraction = 55-60%. * The right ventricular systolic function is normal. * There is mild mitral regurgitation. * The left atrial size is normal. * Right atrial size is normal. * The thickening of interatrial septum suggests lipomatous hypertrophy. Procedure Details * A complete two-dimensional transthoracic echocardiogram was performed (2D, M-mode, Doppler and color flow Doppler). Left Ventricle * The left ventricle is normal in size. * There is moderate concentric left ventricular hypertrophy. * Ejection Fraction = 55-60%. Right Ventricle * The right ventricle is normal size. * The right ventricular systolic function is normal. Atria * The left atrial size is normal. * Right atrial size is normal. * The thickening of interatrial septum suggests lipomatous hypertrophy. Mitral Valve * The mitral valve is grossly normal. * There is mild mitral regurgitation. Tricuspid Valve * The tricuspid valve anatomy is normal. * Significant tricuspid regurgitation is absent. Aortic Valve * The aortic valve is normal in structure and function. Pulmonic Valve * The pulmonic valve is not well visualized. * There is no significant pulmonary regurgitation. Great Vessels * The aortic root and proximal ascending aorta are normal sized. MMode 2D Measurements and Calculations IVSd 1.4 cm IVSs 1.9 cm LVIDd 3.8 cm LVIDs 2.6 cm LVPWd 1.5 cm LVPWs 1.5 cm IVS/LVPW 0.92 FS 32.0 % EDV(Teich) 63.1 ml ESV(Teich) 24.7 ml EF(Teich) 60.9 % EDV(cubed) 56.1 ml ESV(cubed) 17.6 ml EF(cubed) 68.6 % % IVS thick 39.8 % % LVPW thick 1.9 % LV mass(C)d 198.9 grams LV mass(C)dI 106.4 grams/m\S\2 LV mass(C)s 165.0 grams LV mass(C)sI 88.2 grams/m\S\2 SV(Teich) 38.4 ml SI(Teich) 20.5 ml/m\S\2 SV(cubed) 38.5 ml SI(cubed) 20.6 ml/m\S\2 Ao root diam 4.1 cm Ao root area 13.0 cm\S\2 ACS 2.1 cm LA dimension 3.4 cm LA/Ao 0.85 LVOT diam 2.1 cm LVOT area 3.4 cm\S\2 LVAd ap4 24.0 cm\S\2 LVLd ap4 6.8 cm EDV(MOD-sp4) 70.6 ml EDV(sp4-el) 72.1 ml LVAs ap4 13.8 cm\S\2 LVLs ap4 5.2 cm ESV(MOD-sp4) 31.3 ml ESV(sp4-el) 30.8 ml EF(MOD-sp4) 55.7 % EF(sp4-el) 57.3 % LVAd ap2 24.6 cm\S\2 LVLd ap2 6.9 cm EDV(MOD-sp2) 70.3 ml EDV(sp2-el) 74.9 ml LVAs ap2 15.4 cm\S\2 LVLs ap2 6.0 cm ESV(MOD-sp2) 33.7 ml ESV(sp2-el) 33.7 ml EF(MOD-sp2) 52.0 % EF(sp2-el) 55.0 % LVLd %diff 0.99 % EDV(MOD-bp) 70.6 ml LVLs %diff 12.4 % ESV(MOD-bp) 34.6 ml EF(MOD-bp) 51.0 % SV(MOD-sp4) 39.3 ml SI(MOD-sp4) 21.0 ml/m\S\2 SV(MOD-sp2) 36.6 ml SI(MOD-sp2) 19.6 ml/m\S\2 SV(MOD-bp) 36.0 ml SI(MOD-bp) 19.2 ml/m\S\2 SV(sp4-el) 41.3 ml SI(sp4-el) 22.1 ml/m\S\2 SV(sp2-el) 41.2 ml SI(sp2-el) 22.0 ml/m\S\2 Doppler Measurements and Calculations MV E max jcalyn 107.3 cm/sec MV P1/2t max jaclyn 113.0 cm/sec MV P1/2t 45.7 msec MVA(P1/2t) 4.8 cm\S\2 MV dec slope 724.2 cm/sec\S\2 MV dec time 0.15 sec Ao V2 max 90.2 cm/sec Ao max PG 3.3 mmHg Ao max PG (full) 0.70 mmHg MADHU(V,A) 3.0 cm\S\2 MADHU(V,D) 3.0 cm\S\2 LV V1 max PG 2.5 mmHg LV V1 max 79.8 cm/sec MR max jaclyn 409.0 cm/sec MR max PG 66.9 mmHg PA V2 max 71.8 cm/sec PA max PG 2.1 mmHg PI max jaclyn 201.3 cm/sec PI max PG 16.2 mmHg PI dec slope 178.0 cm/sec\S\2 PI P1/2t 331.2 msec TR max jaclyn 250.7 cm/sec
[2016-09-02] MEDS: HEPARIN 25,000 UNIT/500ML D5W 500 ML IV PRN (12:55)
[2016-09-02 15:22] VITALS: BP 112/68; PULSE 106; TEMP 36.5; O2SAT 94
[2016-09-02 19:33] VITALS: BP 105/66; PULSE 109; TEMP 36.4; O2SAT 97
[2016-09-02 19:40] LABS: PARTIAL THROMBOPLASTIN RATIO 2.1
[2016-09-02] MEDS: LORAZEPAM 0.5 MG TAB PO SCH (21:38)
[2016-09-02] MEDS: ZOLPIDEM TARTRATE 10 MG TAB PO SCH (21:38)
[2016-09-02] MEDS: GABAPENTIN 600 MG TAB PO SCH (21:39)
[2016-09-02] MEDS: PANTOprazole SOD 40 MG TAB PO SCH (21:39)
[2016-09-02] MEDS: METOPROLOL TARTRATE 25 MG TAB PO SCH (21:39)
[2016-09-02 23:31] VITALS: BP 112/66; PULSE 114; TEMP 36.8; O2SAT 95
[2016-09-03 04:05] VITALS: BP 107/65; PULSE 90; TEMP 36.4; O2SAT 95
[2016-09-03] MEDS: LEVOTHYROXINE 100 MCG TAB PO SCH (06:17)
[2016-09-03 06:20] LABS: HEMATOCRIT 32.1 % (37-47); MEAN CORPUSCULAR HEMOGLOBIN 30.1 pg (25-34); MEAN CORPUSCULAR HGB CONC 32.7 g/dl (32-36); MEAN PLATELET VOLUME 10.2 fL (7.4-10.4); PLATELET COUNT 206 K/uL (130-400); RED BLOOD COUNT 3.49 M/uL (4.2-5.4); WHITE BLOOD COUNT 5.29 K/uL (4.8-10.8)
[2016-09-03 06:50] LABS: BUN/CREATININE RATIO 16.3 (10-20); CALCIUM 8.6 mg/dl (8.5-10.1); CREATININE 0.9 mg/dl (0.60-1.20); MAGNESIUM 1.9 mg/dl (1.8-2.4); POTASSIUM 3.8 mmol/L (3.5-5.1)
[2016-09-03 07:20] VITALS: BP 126/83; PULSE 99; TEMP 36.4; O2SAT 93
[2016-09-03] MEDS: GABAPENTIN 300 MG CAP PO SCH (08:33)
[2016-09-03] MEDS: METOPROLOL TARTRATE 25 MG TAB PO SCH (08:33)
[2016-09-03] MEDS: ASPIRIN 81 MG ECTAB PO SCH (08:33)
[2016-09-03] MEDS: DULOXETINE HCL 60 MG CAP PO SCH (08:33)
[2016-09-03] MEDS ORDERED: METOPROLOL TARTRATE 25 MG TAB PO STA (10:10)
[2016-09-03] MEDS: HEPARIN 25,000 UNIT/500ML D5W 500 ML IV PRN (10:35)
--- NOTE | 2016-09-03 10:42 | Progress Note ---
Subjective Date of Service: Sep 03, 2016. Subjective Pt evaluation today including: conversation w/ patient, conversation w/ family , physical exam, lab review, review of studies, conversation w/ security system sales consultant, review of inpatient medication list Saw/examined the patient in room 229 No problems/issues to note No chest pain, no palpitations, no edema Right hip pain controlled Problem List Medical Problems: (1) New onset a-fib Status: Acute (2) Palpitations Status: Acute Review of Systems Respiratory: No cough, No dyspnea at rest, No dyspnea on exertion, No shortness of breath, No sputum, No wheezing Cardiac: No chest pain, No edema, No palpitations Abdomen: No diarrhea, No nausea, No pain, No vomiting Musculoskeletal: No joint pain (right hip pain controlled) Medications Current Inpatient Medications Medications (Trade) Dose Ordered Sig/Vladislav Route Start Time Stop Time Status Last Admin Dose Admin Acetaminophen (Tylenol Tab) 650 mg Q4H PRN PO 09/02/16 10:15 10/02/16 10:14 Ondansetron HCl (Zofran Inj) 4 mg Q6H PRN IV 09/02/16 10:15 10/02/16 10:14 Duloxetine HCl (Cymbalta Cap) 60 mg QAM PO 09/03/16 09:00 10/03/16 08:59 09/03/16 08:33 60 MG Gabapentin (Neurontin Cap) 300 mg QAM PO 09/03/16 09:00 10/03/16 08:59 09/03/16 08:33 300 MG Gabapentin (Neurontin Tab) 600 mg QPM PO 09/02/16 21:00 10/02/16 20:59 09/02/16 21:39 600 MG Levothyroxine Sodium (Synthroid Tab) 100 mcg DAILYBB PO 09/03/16 06:00 10/03/16 05:59 09/03/16 06:17 100 MCG Lorazepam (Ativan Tab) 0.5 mg HS PO 09/02/16 21:00 10/02/16 20:59 09/02/16 21:38 0.5 MG Pantoprazole Sodium (Protonix Tab) 40 mg QPM PO 09/02/16 21:00 10/02/16 20:59 09/02/16 21:39 40 MG Simvastatin (Zocor Tab) 40 mg TuThSa@2100 PO 09/03/16 21:00 10/03/16 20:59 Zolpidem Tartrate (Ambien Tab) 10 mg HS PO 09/02/16 21:00 10/02/16 20:59 09/02/16 21:38 10 MG Aspirin 81 mg 81 mg QAM PO 09/03/16 09:00 10/03/16 08:59 09/03/16 08:33 81 MG Heparin Sodium/ Dextrose (Heparin 25,000 Unit/500ml D5W) 500 ml @ 20 mls/hr Q24H PRN IV 09/02/16 12:45 10/02/16 12:44 09/02/16 12:55 23 MLS/HR Metoprolol Tartrate (Lopressor Tab) 50 mg BID PO 09/03/16 21:00 10/03/16 20:59 UNV Metoprolol Tartrate (Lopressor Tab) 25 mg NOW STAT PO 09/03/16 10:10 09/03/16 10:11 UNV Objective Vital Signs Date Time Temp Pulse Resp B/P Pulse Ox O2 Delivery O2 Flow Rate FiO2 09/03/16 08:00 Room Air 09/03/16 07:20 36.4 99 16 126/83 93 Room Air 09/03/16 04:05 36.4 90 20 107/65 95 Room Air 09/03/16 04:00 Room Air 09/03/16 00:00 Room Air 09/02/16 23:31 36.8 114 20 112/66 95 Room Air 09/02/16 20:00 Room Air 09/02/16 19:33 36.4 109 20 105/66 97 Room Air 09/02/16 16:00 Room Air 09/02/16 15:22 36.5 106 18 112/68 94 Room Air 09/02/16 12:00 Room Air 09/02/16 10:46 36.5 99 22 127/87 Room Air Physical Exam General Appearance: no apparent distress Respiratory/Chest: lungs clear, normal breath sounds, no respiratory distress, no accessory muscle use Cardiovascular: no edema, no murmur, + irregularly irregular Abdomen: normal bowel sounds, non tender, soft Extremities: normal inspection, no pedal edema Neurologic/Psychiatric: no motor/sensory deficits, alert, normal mood/affect Laboratory Results Last 24 Hours Test 09/02/16 11:07 09/02/16 19:15 09/03/16 05:10 09/03/16 05:20 White Blood Count 6.38 K/uL 5.29 K/uL Red Blood Count 3.84 M/uL 3.49 M/uL Hemoglobin 11.6 g/dL 10.5 g/dL Hematocrit 35.9 % 32.1 % Mean Corpuscular Volume 93.5 fL 92.0 fL Mean Corpuscular Hemoglobin 30.2 pg 30.1 pg Mean Corpuscular Hemoglobin Concent 32.3 g/dl 32.7 g/dl Platelet Count 216 K/uL 206 K/uL Mean Platelet Volume 9.8 fL 10.2 fL Neutrophils (%) (Auto) 85.3 % Lymphocytes (%) (Auto) 10.7 % Monocytes (%) (Auto) 2.4 % Eosinophils (%) (Auto) 0.8 % Basophils (%) (Auto) 0.3 % Neutrophils # (Auto) 5.45 K/uL Lymphocytes # (Auto) 0.68 K/uL Monocytes # (Auto) 0.15 K/uL Eosinophils # (Auto) 0.05 K/uL Basophils # (Auto) 0.02 K/uL RDW Standard Deviation 48.6 fL 48.1 fL RDW Coefficient of Variation 14.4 % 14.2 % Immature Granulocyte % (Auto) 0.5 % Immature Granulocyte # (Auto) 0.03 K/uL Sodium Level 142 mmol/L 143 mmol/L Potassium Level 4.3 mmol/L 3.8 mmol/L Chloride Level 108 mmol/L 107 mmol/L Carbon Dioxide Level 29 mmol/L 26 mmol/L Anion Gap 5.0 mmol/L 10.0 mmol/L Blood Urea Nitrogen 14 mg/dl 15 mg/dl Creatinine 0.87 mg/dl 0.90 mg/dl Est Creatinine Clear Calc Drug Dose 57.6 ml/min 56.6 ml/min Estimated GFR () 76.1 73.0 Estimated GFR (Non- 65.6 63.0 BUN/Creatinine Ratio 15.7 16.3 Random Glucose 121 mg/dl 113 mg/dl Calcium Level 9.0 mg/dl 8.6 mg/dl Magnesium Level 2.0 mg/dl 1.9 mg/dl Thyroid Stimulating Hormone (TSH) 0.679 uIu/ml Activated Partial Thromboplast Time 54.4 SECONDS 76.9 SECONDS Partial Thromboplastin Ratio 2.1 3.0 Assessment and Plan This is a 76 year old female with PMH of A. Fib on Coumadin, uterine CA in remission s/p hysterectomy, HTN, HLD, hypothyroid was brought here for right hip LUPIS which was postponed due to A. fib with RVR A. Fib with RVR 09/03 currently in A. Fib, though rates better controlled appreciate cardiology input metoprolol tartrate dose increased IV heparin started 09/02 surgery is now postponed will restart b-sin (she did not take this this morning) IV heparin started echo shows normal LVEF, no other significant findings monitor in tele cardiology consulted Right Hip OA 09/03 orthopedic consulted; possible surgical intervention on Monday continue Cymbalta and gabapentin 09/02 orthopedic consulted patient's daughter wants patient to remain in hospital until surgery can be performed Hypotension secondary to medication was given IV Lopressor for the A. Fib with RVR pressures improved with IVFs Hypothyroidism Continue levothyroxine Anxiety Continue Cymbalta and Lorazepam Uterine CA S/p surgery and chemo; in remission DVT ppx IV Heparin SCDs DNR
--- NOTE | 2016-09-03 11:25 | PROGRESS NOTE ---
DATE: 09/03/2016 SUBJECTIVE: The patient is a 76-year-old female who presented yesterday for elective hip surgery, but upon admission to the preanesthesia area was found to be in atrial fibrillation with RVR and was hypotensive. The patient received Lopressor and intravenous fluids and eventually her heart rate was better controlled and her blood pressure normalized. She was admitted with anticipation of better rate control of her atrial fibrillation in preparation for possible surgery on Monday. It should be noted that this patient, I feel may have some compliance issues with medications or at least some early dementia that does not allow her to properly take her medications. She had not taken her Lopressor at least the morning of her surgery if not longer before she presented There is also some confusion with her Coumadin in preparation for her surgery. Just something to be noted on the patient's discharge. OBJECTIVE: GENERAL: Alert and oriented, sitting in a chair comfortably. Her son and [id number] are in the room. VITAL SIGNS: Blood pressure 126/83, pulse is regular at 99 beats per minute. GENERAL: She is afebrile. HEENT: She is normocephalic. Pupils are equal and reactive to light. Extraocular muscles are intact bilaterally. NECK: The neck veins are flat. Carotids have good upstrokes bilaterally without bruits. Thyroid is nonpalpable. RESPIRATORY: Breath sounds equal bilaterally and clear to auscultation. CARDIOVASCULAR: Heart has an irregular rhythm. There are no cardiac rubs or murmurs. GASTROINTESTINAL: Abdomen is soft, nontender without organomegaly. EXTREMITIES: Free of edema, digit clubbing, or cyanosis. NEUROLOGIC: Grossly intact. SKIN: Warm to touch. LYMPH NODES: Negative to palpation. LABORATORY DATA: Potassium is 3.8, creatinine is 0.9, hemoglobin is 10.5, INR 1.1. IMPRESSION: 1. Persistent atrial fibrillation with rapid ventricular response. 2. Degenerative joint disease of the hip. RECOMMENDATIONS: The echocardiogram revealed overall preserved left ventricular systolic function and no significant valvular disease. At this point, I am going to titrate her metoprolol in the hope of better heart rate control. If we are able to achieve better heart rate control with the Lopressor, then I anticipate she may be ready for surgery by Monday. I will continue the heparin to the weekend.
[2016-09-03 11:31] VITALS: BP 109/77; PULSE 83; TEMP 36.4; O2SAT 98
--- NOTE | 2016-09-03 12:46 | Orthopedic Progress Note ---
Orthopedic Progress Note Date of Service Sep 03, 2016. Subjective Denies: chest pain, light headedness, nausea / vomiting Additional Notes: Patient was scheduled for a Right hip Arthroplasty. Upon arrival for the surgery , she started to have atrial fibrillation with uncontrolled HR. Medicine was consulted to help gain control of rhythm, BP and HR. Patient is feeling well this morning. She is questioning as to when the surgery will be completed. Objective A&O x3, toes mobile Date Time Temp Pulse Resp B/P Pulse Ox O2 Delivery O2 Flow Rate FiO2 09/03/16 11:31 36.4 83 18 109/77 98 Room Air 09/03/16 08:00 Room Air 09/03/16 07:20 36.4 99 16 126/83 93 Room Air 09/03/16 04:05 36.4 90 20 107/65 95 Room Air 09/03/16 04:00 Room Air 09/03/16 00:00 Room Air 09/02/16 23:31 36.8 114 20 112/66 95 Room Air 09/02/16 20:00 Room Air 09/02/16 19:33 36.4 109 20 105/66 97 Room Air 09/02/16 16:00 Room Air 09/02/16 15:22 36.5 106 18 112/68 94 Room Air Laboratory Results 24 Hours: Test 09/03/16 05:10 Hematocrit 32.1 % Hemoglobin 10.5 g/dL Assessment & Plan Assessment: Persistent atrial fibrillation with rapid ventricular response. osteoarthritis of right hip Plan: Persistent atrial fibrillation with rapid ventricular response - as per cardiology Osteoarthritis of right hip - patient tentatively will have her surgery postponed until she is stable on her medications. She will be discharged once cleared by cardiology and she will reschedule her surgery at a later date. Discharge Planning Discharge Planning Notes: Patient will be discharge when stable with cardiology. She will be rescheduled for surgery at a later date.
[2016-09-03 13:53] LABS: PARTIAL THROMBOPLASTIN RATIO 2.2
[2016-09-03 15:10] VITALS: BP 105/68; PULSE 95; TEMP 36.6; O2SAT 98
[2016-09-03 19:39] VITALS: BP 114/72; PULSE 72; TEMP 36.5; O2SAT 99
[2016-09-03] MEDS ORDERED: SIMVASTATIN 40 MG TAB PO SCH (21:00)
[2016-09-03] MEDS: ZOLPIDEM TARTRATE 10 MG TAB PO SCH (21:13)
[2016-09-03] MEDS: PANTOprazole SOD 40 MG TAB PO SCH (21:13)
[2016-09-03] MEDS: LORAZEPAM 0.5 MG TAB PO SCH (21:13)
[2016-09-03] MEDS: METOPROLOL TARTRATE 50 MG TAB PO SCH (21:14)
[2016-09-03] MEDS: GABAPENTIN 600 MG TAB PO SCH (21:14)
[2016-09-03 23:25] VITALS: BP 103/73; PULSE 88; TEMP 37.1; O2SAT 93
[2016-09-04 03:27] VITALS: BP 107/63; PULSE 93; TEMP 37.1; O2SAT 94
[2016-09-04] MEDS: LEVOTHYROXINE 100 MCG TAB PO SCH (05:38)
[2016-09-04 05:54] LABS: HEMATOCRIT 31.7 % (37-47); MEAN CELL VOLUME 92.7 fL (80-100); MEAN CORPUSCULAR HEMOGLOBIN 30.4 pg (25-34); MEAN CORPUSCULAR HGB CONC 32.8 g/dl (32-36); PLATELET COUNT 202 K/uL (130-400); RED BLOOD COUNT 3.42 M/uL (4.2-5.4); WHITE BLOOD COUNT 4.87 K/uL (4.8-10.8)
[2016-09-04 07:14] VITALS: BP 109/73; PULSE 88; TEMP 36.6; O2SAT 94
[2016-09-04 08:10] VITALS: O2SAT 94
[2016-09-04] MEDS: ASPIRIN 81 MG ECTAB PO SCH (08:11)
[2016-09-04] MEDS: METOPROLOL TARTRATE 50 MG TAB PO SCH (08:11)
[2016-09-04] MEDS: GABAPENTIN 300 MG CAP PO SCH (08:11)
[2016-09-04] MEDS: DULOXETINE HCL 60 MG CAP PO SCH (08:11)
--- NOTE | 2016-09-04 08:30 | Orthopedic Progress Note ---
Orthopedic Progress Note Date of Service Sep 04, 2016. Subjective Reports: complaints (frustrated she has not had her surgery yet), feeling well, pain controlled w PO medications, Denies: SOB, calf pain, chest pain, light headedness, nausea / vomiting Additional Notes: Patient expressed her frustration with not having the surgery over the weekend. She would like to have it done and does not like having to put it off. Objective calves soft nontender, capillary refill less than 2 sec., A&O x3, toes mobile Date Time Temp Pulse Resp B/P Pulse Ox O2 Delivery O2 Flow Rate FiO2 09/04/16 07:14 36.6 88 18 109/73 94 Room Air 09/04/16 04:00 Room Air 09/04/16 03:27 37.1 93 20 107/63 94 Room Air 09/04/16 00:00 Room Air 09/03/16 23:25 37.1 88 20 103/73 93 Room Air 09/03/16 20:00 Room Air 09/03/16 19:39 36.5 72 20 114/72 99 Room Air 09/03/16 16:00 Room Air 09/03/16 15:10 36.6 95 20 105/68 98 Room Air 09/03/16 12:00 Room Air 09/03/16 11:31 36.4 83 18 109/77 98 Room Air Laboratory Results 24 Hours: Test 09/04/16 05:10 Hematocrit 31.7 % Hemoglobin 10.4 g/dL Assessment & Plan Assessment: 1. Persistent atrial fibrillation with rapid ventricular response. 2. Osteoarthritis of right hip Plan: Persistent atrial fibrillation with rapid ventricular response - as per cardiology, awaiting clearance that she is medically stable to discharge Osteoarthritis of right hip - patient tentatively will have her surgery postponed until she is stable on her medications. She will be discharged once cleared by cardiology and she will reschedule her surgery at a later date. Discharge Planning Discharge Planning Notes: Patient will be discharge when stable with cardiology. She will be rescheduled for surgery at a later date.
--- NOTE | 2016-09-04 09:12 | Progress Note ---
Subjective Date of Service: Sep 04, 2016. Subjective Pt evaluation today including: conversation w/ patient, physical exam, lab review, review of studies, review of inpatient medication list Saw/examined the patient in room 229-2 She is very disappointed about not having surgery She denies chest pain/shortness of breath/palpitations Joint pain (right hip) controlled No other complaints Problem List Medical Problems: (1) New onset a-fib Status: Acute (2) Palpitations Status: Acute Review of Systems Constitutional: No chills, No fever, No weakness Respiratory: No cough, No shortness of breath, No sputum Cardiac: No chest pain, No edema, No palpitations Abdomen: No diarrhea, No nausea, No pain, No vomiting Musculoskeletal: No joint pain (controlled) Heme: No abnormal bleeding/bruising Medications Current Inpatient Medications Medications (Trade) Dose Ordered Sig/Vladislav Route Start Time Stop Time Status Last Admin Dose Admin Acetaminophen (Tylenol Tab) 650 mg Q4H PRN PO 09/02/16 10:15 10/02/16 10:14 Ondansetron HCl (Zofran Inj) 4 mg Q6H PRN IV 09/02/16 10:15 10/02/16 10:14 Duloxetine HCl (Cymbalta Cap) 60 mg QAM PO 09/03/16 09:00 10/03/16 08:59 09/04/16 08:11 60 MG Gabapentin (Neurontin Cap) 300 mg QAM PO 09/03/16 09:00 10/03/16 08:59 09/04/16 08:11 300 MG Gabapentin (Neurontin Tab) 600 mg QPM PO 09/02/16 21:00 10/02/16 20:59 09/03/16 21:14 600 MG Levothyroxine Sodium (Synthroid Tab) 100 mcg DAILYBB PO 09/03/16 06:00 10/03/16 05:59 09/04/16 05:38 100 MCG Lorazepam (Ativan Tab) 0.5 mg HS PO 09/02/16 21:00 10/02/16 20:59 09/03/16 21:13 0.5 MG Pantoprazole Sodium (Protonix Tab) 40 mg QPM PO 09/02/16 21:00 10/02/16 20:59 09/03/16 21:13 40 MG Simvastatin (Zocor Tab) 40 mg TuThSa@2100 PO 09/03/16 21:00 10/03/16 20:59 09/03/16 21:14 40 MG Zolpidem Tartrate (Ambien Tab) 10 mg HS PO 09/02/16 21:00 10/02/16 20:59 09/03/16 21:13 10 MG Aspirin 81 mg 81 mg QAM PO 09/03/16 09:00 10/03/16 08:59 09/04/16 08:11 81 MG Heparin Sodium/ Dextrose (Heparin 25,000 Unit/500ml D5W) 500 ml @ 20 mls/hr Q24H PRN IV 09/02/16 12:45 10/02/16 12:44 09/03/16 10:35 20 MLS/HR Metoprolol Tartrate (Lopressor Tab) 50 mg BID PO 09/03/16 21:00 10/03/16 20:59 09/04/16 08:11 50 MG Objective Vital Signs Date Time Temp Pulse Resp B/P Pulse Ox O2 Delivery O2 Flow Rate FiO2 09/04/16 07:14 36.6 88 18 109/73 94 Room Air 09/04/16 04:00 Room Air 09/04/16 03:27 37.1 93 20 107/63 94 Room Air 09/04/16 00:00 Room Air 09/03/16 23:25 37.1 88 20 103/73 93 Room Air 09/03/16 20:00 Room Air 09/03/16 19:39 36.5 72 20 114/72 99 Room Air 09/03/16 16:00 Room Air 09/03/16 15:10 36.6 95 20 105/68 98 Room Air 09/03/16 12:00 Room Air 09/03/16 11:31 36.4 83 18 109/77 98 Room Air Physical Exam General Appearance: no apparent distress, + pertinent finding (depressed affect ; seated comfortably, no distress) Respiratory/Chest: chest non-tender, lungs clear, normal breath sounds, no respiratory distress, no accessory muscle use Cardiovascular: no edema, no murmur, + irregularly irregular Abdomen: normal bowel sounds, non tender, soft Extremities: normal inspection, no pedal edema Neurologic/Psychiatric: no motor/sensory deficits, alert, + depressed affect Laboratory Results Last 24 Hours Test 09/03/16 13:00 09/04/16 05:10 Activated Partial Thromboplast Time 57.8 SECONDS 53.1 SECONDS Partial Thromboplastin Ratio 2.2 2.0 White Blood Count 4.87 K/uL Red Blood Count 3.42 M/uL Hemoglobin 10.4 g/dL Hematocrit 31.7 % Mean Corpuscular Volume 92.7 fL Mean Corpuscular Hemoglobin 30.4 pg Mean Corpuscular Hemoglobin Concent 32.8 g/dl RDW Standard Deviation 49.8 fL RDW Coefficient of Variation 14.6 % Platelet Count 202 K/uL Mean Platelet Volume 10.0 fL Assessment and Plan This is a 76 year old female with PMH of A. Fib on Coumadin, uterine CA in remission s/p hysterectomy, HTN, HLD, hypothyroid was brought here for right hip LUPIS which was postponed due to A. fib with RVR A. Fib with RVR 09/04 appreciate cardiology input metoprolol increased patient in persistent A.Fib - rates now controlled IV heparin since no surgery planned; may need to switch back to Coumadin and discharge patient home 09/03 currently in A. Fib, though rates better controlled appreciate cardiology input metoprolol tartrate dose increased IV heparin started 09/02 surgery is now postponed will restart b-sin (she did not take this this morning) IV heparin started echo shows normal LVEF, no other significant findings monitor in tele cardiology consulted Right Hip OA 09/04 continue home pain management d/c home and schedule surgery at later date 09/03 orthopedic consulted; possible surgical intervention on Monday continue Cymbalta and gabapentin 09/02 orthopedic consulted patient's daughter wants patient to remain in hospital until surgery can be performed Hypotension secondary to medication was given IV Lopressor for the A. Fib with RVR pressures improved with IVFs Hypothyroidism Continue levothyroxine Anxiety Continue Cymbalta and Lorazepam Uterine CA S/p surgery and chemo; in remission DVT ppx IV Heparin SCDs DNR
[2016-09-04] MEDS ORDERED: LOVENOX TEACHING KIT PRN (10:00)
[2016-09-04] MEDS ORDERED: ENOXAPARIN 100 MG/1ML SYR SQ SCH ×2 (10:00→13:45)
--- NOTE | 2016-09-04 10:16 | PROGRESS NOTE ---
DATE: 09/04/2016 FOLLOWUP VISIT SUBJECTIVE: The patient is a 76-year-old female who was scheduled to have hip surgery but presented with atrial fibrillation and RVR. I increased her metoprolol yesterday and her heart rates are better controlled. She is comfortable and has no complaints. Unfortunately, the plan was to possibly have her have surgery tomorrow, but because of scheduling that is not going to occur. Orthopedics is recommending that they reschedule her for several weeks from today. This may not be a bad idea as we can send her home, readjust her Coumadin and medications as an outpatient and then have her seen by Dr. Rios prior to going to surgery. She is disappointed but accepting. OBJECTIVE: GENERAL: She is alert and oriented in no acute distress. VITAL SIGNS: Blood pressure is 115/80, pulse is irregular at 85 beats per minute. She is afebrile. HEENT: She is normocephalic. Pupils are equal and reactive to light. Extraocular muscles are intact bilaterally. NECK: The neck veins are flat. Carotids have good upstrokes bilaterally without bruits. Thyroid is nonpalpable. RESPIRATORY: Breath sounds are equal bilaterally and clear to auscultation. CARDIOVASCULAR: Heart has an irregular rhythm. Normal S1, S2, no S3, S4. No cardiac rubs or murmurs. GASTROINTESTINAL: Abdomen is soft, nontender without organomegaly. EXTREMITIES: Free of edema, digit clubbing, or cyanosis. NEUROLOGIC: Grossly intact. SKIN: Warm to touch. LYMPH NODES: Negative to palpation. IMPRESSION: 1. Persistent atrial fibrillation. 2. Degenerative joint disease of the hip. RECOMMENDATIONS: As outlined above the hip surgery has been postponed. At this point, the patient is medically stable for discharge. She will have to be restarted on her warfarin and I would recommend a Lovenox bridge until her INR is therapeutic. We will arrange follow up with her primary teasel setter, Dr. Rios.
[2016-09-04 10:46] VITALS: BP 106/72; PULSE 77; TEMP 37; O2SAT 95
[2016-09-04] MEDS ORDERED: LVNIS100 SQ (13:43)
[2016-09-04] MEDS ORDERED: LPR50X PO (13:43)
--- NOTE | 2016-09-04 13:50 | Discharge Instructions ---
Discharge Instructions Date of Service Sep 04, 2016. Admission Reason for Admission: Atrial Fibrillation With Rvr, Hypotension Discharge Discharge Diagnosis / Problem: A. fib with RVR/hypotension Discharge Goals Goal(s): Decrease discomfort, Improve function, Diagnostic testing, Therapeutic intervention Activity Recommendations Activity Limitations: resume your previous activity . Instructions / Follow-Up Instructions / Follow-Up Please follow-up with your primary care physician Please follow-up with cardiology on September 08 @ 10:20AM * Your dose of metoprolol has changed - take 50mg twice a day (or take two 25mg pills twice a day) * Continue taking Coumadin 5mg daily (once a day) * You will inject Lovenox 90mg twice a day (home health will help with this) * Surgery to be schedule in around 2 weeks if you are stable with the atrial fibrillation Current Hospital Diet Patient's current hospital diet: AHA Diet (Heart Healthy) Discharge Diet Recommended Diet: AHA Diet (Heart Healthy) Pending Studies Studies pending at discharge: no Laboratory Results Hemoglobin A1c Test 08/08/16 13:36 Range/Units Estimated Average Glucose 108 mg/dl Hemoglobin A1c 5.4 4.5-5.6 % Medical Emergencies . Who to Call and When: Medical Emergencies: If at any time you feel your situation is an emergency, please call 911 immediately. . Non-Emergent Contact Non-Emergency issues call your: [employer] . . "Provider Documentation" section prepared by Harley Salazar. VTE Core Measure Inpt VTE Proph given/why not?: Enoxaparin (Lovenox)SQ, Warfarin (Coumadin), Other Anticoagulation (IV heparin)
--- NOTE | 2016-09-04 13:52 | Discharge Summary ---
Discharge Summary Date of Service Sep 04, 2016. Discharge Summary Admission Date: Sep 02, 2016 at 10:06 Discharge Date: Sep 04, 2016 Discharge Disposition: Home with services Principal Diagnosis: A. Fib with RVR Hypotension secondary to Drugs Medication Reconciliation New Medications: Enoxaparin (Enoxaparin Sodium) 100 Mg/Ml Inj 90 MG SQ Q12@1000,2200 for 15 Days, #30 ML Changed Medications: Metoprolol Tartrate (Metoprolol Tartrate) 50 Mg Tab 50 MG PO BID for 30 Days, #60 TABS (Changed from: Metoprolol Tartrate (Lopressor ) 25 Mg Tab 25 Mg PO BID 30 Days #60 TAB) Continued Medications: Aspirin (Aspirin Ec) 81 Mg Tab 81 MG PO QAM Duloxetine Hcl (Cymbalta) 60 Mg Cap 60 MG PO QAM, CAP Gabapentin (Neurontin) 300 Mg Cap 300 MG PO QAM, CAP Gabapentin (Neurontin) 300 Mg Cap 600 MG PO QPM, CAP Levothyroxine Sodium (Synthroid) 100 Mcg Tab 100 MCG PO QAM, TAB Lorazepam (Ativan) 0.5 Mg Tab 0.5 MG PO HS, TAB Meloxicam (Mobic) 7.5 Mg Tab 7.5 MG PO DAILY PRN for Pain, TAB Pantoprazole Sodium (Protonix) 40 Mg Tab 40 MG PO QPM, #30 TAB Simvastatin (Zocor) 40 Mg Tab 40 MG PO 3XWEEK, TAB Monday HS Vitamins C & E (Vitamin C) 1 Cap Cap 1 TAB PO QPM Warfarin Sod (Coumadin) 5 Mg Tab 5 MG PO DAILY@16 for 15 Days, #15 TAB Zolpidem Tartrate (Ambien) 10 Mg Tab 10 MG PO HS, TAB [Vitamin D] () 1 TAB PO QPM Admission Information HPI (per Admitting provider): This is a 76 y/o female with PMH of atrial fibrillation recently diagnosed, HTN , HL, hypothyroidism, and other problems listed below who presented to [facility] for right total hip replacement by Dr. Johnson and was found to be in Afib with RVR. Patient was admitted at [facility] Aug [id number] for new onset Afib and was discharged on Lopressor 25 mg BID and Coumadin. Echo during that admission showed grossly normal LV EF and no significant valvular pathology. She followed up with cardiology Dr. Rios as an outpatient. Her Coumadin has been on hold since 08/1016 although she was told to hold only 5 days prior to surgery. She was supposed to continue metoprolol including on the morning of surgery but did not take it this morning. Patient was found to be in Afib with RVR in preop area. Patient was given IV Lopressor 5 mg which improved her heart rate but caused her to become hypotensive. She was given IVF's and phenylephrine and BP has improved to 90s systolic as she is finishing her second liter. She reports being asymptomatic throughout the morning. Denies dizziness, palpitations, chest pain, shortness of breath. She is not having any pain currently. Patient was seen by cardiology in preop area. Surgery is postponed and patient will be admitted to telemetry. Physical Exam (per Admitting): General Appearance: no apparent distress, + obese, + pertinent finding ( pleasant alert 76 year old female, no distress) Head: normocephalic, atraumatic Eyes: normal inspection, PERRL, EOMI ENT: hearing grossly normal, pharynx normal Neck: supple, trachea midline Respiratory/Chest: lungs clear, normal breath sounds, no respiratory distress, no accessory muscle use Cardiovascular: no murmur, + irregularly irregular (rate 100) Abdomen/GI: normal bowel sounds, non tender, soft Extremities/Musculoskelatal: no calf tenderness, no pedal edema Neurologic/Psych: alert, normal mood/affect, oriented x 3, + pertinent finding (grossly nonfocal) Skin: normal color, warm/dry Hospital Course This is a 76 year old female with PMH of A. Fib on Coumadin, uterine CA in remission s/p hysterectomy, HTN, HLD, hypothyroid was brought here for right hip LUPIS which was postponed due to A. fib with RVR A. Fib with RVR 09/04 appreciate cardiology input metoprolol increased patient in persistent A.Fib - rates now controlled IV heparin since no surgery planned; may need to switch back to Coumadin and discharge patient home 09/03 currently in A. Fib, though rates better controlled appreciate cardiology input metoprolol tartrate dose increased IV heparin started 09/02 surgery is now postponed will restart b-sin (she did not take this this morning) IV heparin started echo shows normal LVEF, no other significant findings monitor in tele cardiology consulted Right Hip OA 09/04 continue home pain management d/c home and schedule surgery at later date 09/03 orthopedic consulted; possible surgical intervention on Monday continue Cymbalta and gabapentin 09/02 orthopedic consulted patient's daughter wants patient to remain in hospital until surgery can be performed Hypotension secondary to medication was given IV Lopressor for the A. Fib with RVR pressures improved with IVFs Hypothyroidism Continue levothyroxine Anxiety Continue Cymbalta and Lorazepam Uterine CA S/p surgery and chemo; in remission DVT ppx IV Heparin SCDs DNR Total time spent on discharge = 42 minutes This includes examination of the patient, discharge planning, medication reconciliation, and communication with other providers. Discharge Instructions Please follow-up with your primary care physician Please follow-up with cardiology on September 08 @ 10:20AM * Your dose of metoprolol has changed - take 50mg twice a day (or take two 25mg pills twice a day) * Continue taking Coumadin 5mg daily (once a day) * You will inject Lovenox 90mg twice a day (home health will help with this) * Surgery to be schedule in around 2 weeks if you are stable with the atrial fibrillation
[2016-09-04 13:55] VITALS: BP 106/72; PULSE 77; TEMP 37; O2SAT 95
[2016-09-04] MEDS ORDERED: WARFARIN SOD 5 MG TAB PO SCH (16:00)
[2016-09-22] MEDS ORDERED: METO50TA16 PO (16:09)
[2016-09-22] MEDS ORDERED: ENOX30IN4 SQ (16:09)
[2016-09-22] MEDS ORDERED: CMD5 PO (16:09)
[2016-09-23] MEDS ORDERED: ENOX80IN SQ (06:11)
[2016-10-03] MEDS ORDERED: ENOX80IN SQ (16:17)
[2016-10-03] MEDS ORDERED: METO1TAB69 PO (16:21)
[2016-10-03] MEDS ORDERED: METO50TA7 PO (16:21)
[2016-10-06] MEDS ORDERED: DIGO0.1219 PO (16:46)
[2016-10-17] MEDS ORDERED: SNK PO (10:47)
[2016-10-17] MEDS ORDERED: ACET-1138 PO (10:47)
[2016-10-17] MEDS ORDERED: RXC5 PO (10:47)
[2016-10-17] MEDS ORDERED: CLC100 PO (10:47)
[2016-10-17] MEDS ORDERED: CMD5 PO (10:47)
[2016-10-17] MEDS ORDERED: LVNIS40 SQ (10:47)
[2016-10-17] MEDS ORDERED: ULT50X PO (10:47)
[2016-10-17] MEDS ORDERED: MULT-589 PO (10:47)
== END 2016-09-04 15:16 | disposition home health service (06) | DRG 554 ==
LOC: ENRESERVDT → ENRESERVTM → C.ACU 05:36 → C.2T 10:06
PROVIDERS: ADMIT Family Medicine; ATTEND Family Medicine
DX: M16.11 Unilateral primary osteoarthritis, right hip (principal); I48.1 Persistent atrial fibrillation; Z53.09 Procedure and treatment not carried out because of other contraindication; K21.9 Gastro-esophageal reflux disease without esophagitis; E66.9 Obesity, unspecified; F41.9 Anxiety disorder, unspecified; Z68.39 Body mass index [BMI] 39.0-39.9, adult; E03.9 Hypothyroidism, unspecified; E78.5 Hyperlipidemia, unspecified; I45.19 Other right bundle-branch block; I10 Essential (primary) hypertension; Z92.21 Personal history of antineoplastic chemotherapy; Z85.42 Personal history of malignant neoplasm of other parts of uterus; Z90.710 Acquired absence of both cervix and uterus; Z66 Do not resuscitate; Z79.82 Long term (current) use of aspirin; Z79.899 Other long term (current) drug therapy; Z91.14 Patient's other noncompliance with medication regimen; I95.2 Hypotension due to drugs; T44.7X5A Adverse effect of beta-adrenoreceptor antagonists, initial encounter; Z90.49 Acquired absence of other specified parts of digestive tract; Z79.01 Long term (current) use of anticoagulants

== ENCOUNTER → 2016-09-23 | Day surgery (SDC) | payer OTHER ==
[2016-09-22 15:41] VITALS: BMI 39.0
[~2016-09-23] VITALS: Ht 152.4 cm; Wt 91.3 kg
[~2016-09-23] MED LIST changes: +ACET-1138 PO; +BACITRACIN 50000 UNIT VIAL ONE; +BUPIVACAINE 0.5 % 5 MG/1 ML PF 10ML VIAL ONE; -CFT250 PO; +CLC100 PO; +DIGO0.1219 PO; +ENOX30IN4 SQ; +ENOX80IN SQ; +FENTANYL CITRATE INJ 50 MCG/1 ML 2 ML VIAL ONE; +LACTATED RINGER'S 1000ML 1,000 ML IV SCH; -LPR25 PO; +LVNIS40 SQ; -MELO7.5T5 PO; +METO100T44 PO; +METO50TA16 PO; +METO50TA7 PO; +MIDAZOLAM HCL 1 MG/ML 2ML VIAL ONE; +MULT-589 PO; +ORTHO JOINT ANESTHETIC ONE; +POVIDONE-IODINE OP SOLN 30 ML BTL ONE; +RXC5 PO; +SNK PO; +ULT50X PO
[2016-09-23 05:50] VITALS: BP 127/89; PULSE 93; TEMP 37; O2SAT 95; Ht 152.4 cm; Wt 91.3 kg
[2016-09-23 06:17] LABS: PARTIAL THROMBOPLASTIN RATIO 1.1; PROTHROMBIN TIME (PATIENT) 10.7 SECONDS (9.0-12.0)
--- NOTE | 2016-09-23 08:04 | Progress Note ---
Progress Note Date of Service Sep 23, 2016. Progress Note This patient was scheduled for the same surgery one month ago and was cancelled when it was noticed in ASU II that she was in atrial fibrillation with a rapid ventricular response. Since that time she has been taking metoprolol 50 mg BID and coumadin. The coumadin was held and she was on a lovenox bridge at 90 mg BID. She was told to take a full dose of lovenox last evening which she did. Because of that we would not be able to give her neuraxial anesthesia. In addition, her rate in the holding room was jumping around from the mid 90s to the the one hundred teens. We obtained a 12 lead EKG which showed her rate to be 117. This combination led us to cancel her case pending rate control of her atrial fibrillation. Furthermore, she should only be given either a full therapeutic dose of lovenox 24 hours before surgery or a prophylactic dose (30 or 40 mg) 12 hours before surgery in order to be able to do her surgery under spinal anesthesia.
--- NOTE | 2016-09-23 08:35 | History & Physical Bridge Note ---
H&P Re-Evaluation Bridge Note: I have examined the patient, reviewed the History & Physical and in the interval since the performance of the History & Physical I have noted the following changes of clinical significance: A-fib with RVR again today despite Metoprolol 50mg. In addition, patient had 90mg Lovenox at 5:30 pm yesterday which will unacceptably increase her risk of bleeding for spinal anesthesia and for total hip replacement. Post-pone surgery. Discussed case with Dr Zuluaga and Dr Rios. Consult made for Cardiology service.
--- NOTE | 2016-09-23 13:34 | CARDIOLOGY CONSULTATION ---
DATE OF CONSULTATION: 09/23/2016 REFERRING PHYSICIAN: Dr. Pankaj Johnson. REASON FOR CONSULTATION: Atrial fibrillation. HISTORY OF PRESENT ILLNESS: Ms. Rodriguez is a 76-year-old female who presents for elective left-sided hip surgery. The patient carries a history of chronic atrial fibrillation. Her heart rate was elevated on initial evaluation, approximately 110 beats per minute. She was noted to receive a dose of subcutaneous Lovenox last evening. Due to her heart rate and recent dose of Lovenox, her elective surgery has been canceled. Cardiology consultation requested for further evaluation. The patient seen and examined at the bedside. Currently, resting comfortably. Her 2 children are present as well. The patient denied chest pain, palpitations, shortness of breath, lightheadedness, dizziness, syncope or near syncope. She complains of excessive abdominal ecchymosis associated with her Lovenox injection. There is mild discomfort to palpation. On exam, her heart rate is currently 85 beats per minute and irregular. She offers no complaints at this time. REVIEW OF SYSTEMS: The pertinent positive noted above, a comprehensive 10-system review is otherwise negative. PAST MEDICAL HISTORY: 1. Chronic atrial fibrillation with difficult to control heart rate. 2. Uterine carcinoma. 3. Hypertension. 4. GERD. 5. Dyslipidemia. 6. Anxiety. PAST SURGICAL HISTORY: Hysterectomy. ALLERGIES: No known drug allergies. OUTPATIENT MEDICATIONS: 1. Gabapentin 300 mg 3 times a day. 2. Aspirin 81 mg a day. 3. Levoxyl 100 mcg daily. 4. Mobic 7.5 mg daily. 5. Ativan 0.5 mg every 6 hours as needed. 6. Prinivil 20 mg daily. 7. Protonix 40 mg daily. 8. Tramadol 50 mg every 6 hours as needed. 9. Zocor 40 mg a day. 10. Coumadin 5 mg daily. 11. Metoprolol 50 mg twice daily. SOCIAL HISTORY: Lifelong nonsmoker. No alcohol or drug use. FAMILY HISTORY: Negative for premature CAD or sudden cardiac ; however, noncontributory, given patient's age. LABORATORY DATA: ECG is atrial fibrillation with rapid ventricular response, ventricular rate is 117 beats per minute and age-undetermined septal infarct cannot be excluded. Labs from 09/03/2016 reviewed. PHYSICAL EXAMINATION: VITAL SIGNS: Temperature is 37 degrees centigrade, pulse is 85 beats per minute and irregular, respiratory rate is 20 breaths per minute, blood pressure 127/89, SaO2 is 95% on room air. GENERAL: NAD, awake, alert and oriented x3. HEENT: Mucous membranes are moist. No scleral icterus. Conjunctivae pink. NECK: Supple without JVD or HJR. HEART: Regular with a normal S1 and S2. There is a soft 1/6 holosystolic murmur heard best at the apex. ABDOMEN: Soft and nontender. No rebound or guarding. Normal bowel sounds. EXTREMITIES: Warm and dry without clubbing, cyanosis, or edema. NEUROLOGIC: There was no evidence of focal deficit. FINAL IMPRESSION: 1. Chronic atrial fibrillation, currently rate controlled at rest. 2. Abdominal ecchymosis secondary to Lovenox injections. 3. Moderate perioperative cardiovascular risk. 4. Hypertension -- controlled. 5. Dyslipidemia. PLAN AND RECOMMENDATIONS: The patient's surgery has been canceled by anesthesia and orthopedic surgery today. I have instructed the patient to discontinue Lovenox, given her abdominal wall ecchymosis. She will resume Coumadin today. Referral has been placed to the [facility] anticoagulation clinic. She will continue her current dose of metoprolol 50 mg twice daily. A close cardiology followup has been scheduled on September 27 at 9:00 a.m. at the [facility] office. This information was relayed to the patient and her family. All questions were answered to their satisfaction. Thank you for allowing me to take part in the care of your patient.
== END | disposition home or self-care (01) ==
LOC: C.ACU 05:30
PROVIDERS: ATTEND Orthopaedic Surgery Sports Medicine
DX: M16.9 Osteoarthritis of hip, unspecified (principal); I48.2 Chronic atrial fibrillation; Z53.09 Procedure and treatment not carried out because of other contraindication; C54.9 Malignant neoplasm of corpus uteri, unspecified; I10 Essential (primary) hypertension; E78.5 Hyperlipidemia, unspecified; F41.9 Anxiety disorder, unspecified; Z90.710 Acquired absence of both cervix and uterus; Z79.01 Long term (current) use of anticoagulants; Z79.82 Long term (current) use of aspirin